=== PATIENT | female | born 1955 | race Caucasian/White ===

== ENCOUNTER 2016-04-11 12:43 | Emergency (ER) | payer MEDICARE ==
[2016-04-11 13:05] VITALS: BP 182/91; PULSE 76; RESP 18; TEMP 98
--- NOTE | 2016-04-11 13:27 | ED ---
URI HPI - General Chief Complaint: Upper Respiratory Infection Stated Complaint: Sore Throat Time Seen by Provider: 04/11/16 13:07 Source: patient Mode of arrival: ambulatory Limitations: no limitations - History of Present Illness Initial Comments: Patient is a 60-year-old female, patient of Dr. Garzon in the outpatient setting with medical history significant for bronchitis, COPD even though patient is not aware of this diagnosis, nicotine dependence, and hypothyroidism. Patient presents to the hospital with complaints of cough and throat irritation 2 days. Patient reports nasal congestion. Patient states she became concerned when she noticed that her sputum had blood streaks in it. Patient states she normally has a clear sputum, but has now turned to green. Patient reports sweats at night but no documented fevers. Patient states over the last couple of days she's had diarrhea and one episode of vomiting yesterday. Patient currently denies diarrhea or vomiting. Patient denies sick contacts. Patient denies shortness of breath, chest pain, or abdominal pain. Patient denies leg swelling. No treatment prior to arrival. - Related Data Home Medications Medication Instructions Recorded Confirmed Dextroamphetamine/Amphetamine 10 mg PO BID 08/12/13 04/14/15 [Adderall] Diazepam [Valium] 10 mg PO TID PRN 08/12/13 04/14/15 Hydrocodone/Acetaminophen [[place] 1 each PO Q4H PRN 08/12/13 04/14/15 10-325] Levothyroxine Sodium [Synthroid] 75 mcg PO DAILY 08/12/13 04/14/15 Previous Rx's Medication Instructions Recorded Albuterol Inhaler [Ventolin Hfa 1 - 2 puff INHALATION Q6HR PRN #1 04/01/14 Inhaler] inhaler Cephalexin [Keflex] 500 mg PO Q6HR #40 cap 04/14/15 Triamcinolone 0.1% Cream [Kenalog] 1 applicatio TOPICAL BID #30 gram 04/14/15 Allergies Allergy/AdvReac Type Severity Reaction Status Date / Time cephalexin [From Keflex] Allergy Rash/Hives Verified 04/11/16 13:05 Review of Systems ROS Statement: Those systems with pertinent positive or pertinent negative responses have been documented in the HPI. ROS Other: All systems not noted in ROS Statement are negative. 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 History of Any Multi-Drug Resistant Organisms: None Reported Past Surgical History: Bladder Surgery, Section Additional Past Surgical History / Comment(s): bunionectomy, x3, cancerous lesion removed from labia 2010. Past Anesthesia/Blood Transfusion Reactions: No Reported Reaction Past Psychological History: Depression Additional Psychological History / Comment(s): pt. reports she lost her a year ago and currently sees a counselor who she talks to Smoking Status: Current every day smoker Past Alcohol Use History: None Reported Past Drug Use History: None Reported - Past Family History Mother Additional Family Medical History / Comment(s): pt. reports mother had an aortic valve replacement General Exam - General Exam Comments Initial Comments: Vital signs noted as above. RN notes reviewed. GENERAL: Pt awake and alert, well-appearing, well-nourished, and in no acute distress. HEAD: Atraumatic, normocephalic. EYES: Pupils equal, round, and reactive to light, extraocular movements intact, sclera anicteric, conjunctiva are normal. ENT: Oropharynx with mild erythema, no exudates on tonsils. Moist mucous membranes. NECK:Normal range of motion, supple without lymphadenopathy or JVD. LUNGS: Breath sounds clear to auscultation bilaterally. No wheezes, rales, or rhonchi. Loose, harsh productive cough. HEART: Heart S1, S2, no S3 or S4. Regular rate and rhythm. No murmurs, rubs or gallops. ABDOMEN: Soft, obese, nontender, nondistended, normoactive bowel sounds. No guarding, no rebound. No masses or organomegaly appreciated. EXTREMITIES: 2+ peripheral pulses. No edema. No calf tenderness. NEUROLOGICAL: Pt oriented x 3. Cranial nerves II through XII grossly intact. Strength and sensation grossly intact. PSYCH: Normal mood, normal affect. SKIN: Warm, dry, intact. Normal turgor. No rashes or lesions. Limitations: no limitations Course Vital Signs 04/11/16 13:00 Temperature 98.0 F Pulse Rate 76 Respiratory 18 Rate Blood Pressure 182/91 O2 Sat by Pulse 98 Oximetry Medical Decision Making - Medical Decision Making Upper respiratory infection suspect viral with a history of nasal congestion, rhinitis, sore throat, and cough. Chest x-ray negative. Patient denies shortness of breath and no wheezing on physical exam. Patient educated on conservative measures. Reviewed with patient possibly need for antibiotics if symptoms progress, patient declines antibiotics at this time. Patient instructed to follow-up with primary care physician early next week. Return parameters and discharge instructions reviewed. - Radiology Data Radiology results: report reviewed Chest x-ray: Lungs are clear, no pneumothorax or pleural effusion no focal pneumonia. Disposition Clinical Impression: Upper respiratory infection Disposition: HOME SELF-CARE Condition: Good Instructions: Upper Respiratory Infection (ED) Additional Instructions: Increase fluid intake, rest, Tylenol or Motrin for mild pain, if needed over-the -counter cough suppressant or mucus expectorants. Follow-up with Dr. Garzon early next week as directed. Please return to the emergency department if symptoms do not improve or get worse. Referrals: Ailyn Garzon MD [Primary Care Provider] - 1-2 days Time of Disposition: 13:56
--- NOTE | 2016-04-11 13:39 | XR ---
EXAMINATION TYPE: XR chest 2V DATE OF EXAM: 04/11/2016 1:32 PM COMPARISON: 03/29/2014 HISTORY: Cough FINDINGS: The lungs are clear and there is no pneumothorax, pleural effusion, or focal pneumonia. Surgical cl ips in the abdomen. IMPRESSION: 1. No acute process.
== END 2016-04-11 14:09 | disposition home or self-care (01) ==
LOC: EC 12:43
DX: J06.9 Acute upper respiratory infection, unspecified (principal); E07.9 Disorder of thyroid, unspecified; E66.9 Obesity, unspecified; F17.200 Nicotine dependence, unspecified, uncomplicated; Z88.1 Allergy status to other antibiotic agents; Z68.42 Body mass index [BMI] 45.0-49.9, adult; Z79.899 Other long term (current) drug therapy
CPT/HCPCS: 71020; 99283

== ENCOUNTER 2017-01-02 15:46 | Emergency (ER) | payer MEDICARE ==
[2017-01-02 15:53] VITALS: PULSE 89
--- NOTE | 2017-01-02 16:50 | XR ---
EXAMINATION TYPE: XR knee complete RT DATE OF EXAM: 01/02/2017 CLINICAL HISTORY: Right knee pain and swelling TECHNIQUE: Three views of the right knee are obtained. COMPARISON: None. FINDINGS: There is no acute fracture/dislocation evident in right knee. The overlying soft tissue ap pears unremarkable. Mild to moderate tricompartmental osteoarthrosis is seen as marginal osteophytes, subchondral sclerosis, and medial compartment joint space narrowing. Chondrocalcinosis is seen of th e lateral compartment. No suprapatellar joint effusion. IMPRESSION: 1. There is no acute fracture or dislocation in the right knee. 2. Mild to moderate tricompartmental osteoarthrosis. 3. Chondrocalcinosis of the lateral compartment which may relate to underlying CPPD.
--- NOTE | 2017-01-02 17:00 | ED ---
Lower Extremity Injury HPI - General Chief Complaint: Extremity Injury, Lower Stated Complaint: R knee swelling Time Seen by Provider: 01/02/17 16:12 Source: patient, RN notes reviewed, old records reviewed Mode of arrival: ambulatory Limitations: no limitations - History of Present Illness Initial Comments: This is a 61-year-old feel presenting to the emergency Department chief complaint of right knee pain. Patient was on she was walking warm I felt a pop in her knee. She reports that it become increasingly swollen. She states it's worse after she's been walking on it at night. Patient states that she is around any previous injuries to this knee. She states she has a clicking sensation when walking. Patient denies any numbness or tingling down the leg. She reports the pain will occasionally shoot up the leg. - Related Data Home Medications Medication Instructions Recorded Confirmed Diazepam [Valium] 10 mg PO TID PRN 08/12/13 01/02/17 Hydrocodone/Acetaminophen [[place] 1 tab PO QID 08/12/13 01/02/17 10-325] Levothyroxine Sodium [Synthroid] 75 mcg PO DAILY 08/12/13 01/02/17 Latanoprost [Xalatan 0.005%] 1 drop BOTH EYES HS 01/02/17 01/02/17 Previous Rx's Medication Instructions Recorded Ibuprofen [Motrin] 800 mg PO TID #20 tab 01/02/17 Allergies Allergy/AdvReac Type Severity Reaction Status Date / Time cephalexin [From Keflex] Allergy Rash/Hives Verified 01/02/17 16:15 Review of Systems ROS Statement: Those systems with pertinent positive or pertinent negative responses have been documented in the HPI. ROS Other: All systems not noted in ROS Statement are negative. 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 glaucoma History of Any Multi-Drug Resistant Organisms: None Reported Past Surgical History: Bladder Surgery, Section Additional Past Surgical History / Comment(s): bunionectomy, x3, cancerous lesion removed from labia 2010. Past Anesthesia/Blood Transfusion Reactions: No Reported Reaction Past Psychological History: Depression Smoking Status: Current every day smoker Past Alcohol Use History: None Reported Past Drug Use History: None Reported - Past Family History Mother Additional Family Medical History / Comment(s): pt. reports mother had an aortic valve replacement General Exam - General Exam Comments Initial Comments: this is a 61-year-old female. No acute distress. Limitations: no limitations General appearance: alert, in no apparent distress Head exam: Present: atraumatic, normocephalic, normal inspection Eye exam: Present: normal appearance, PERRL, EOMI. Absent: scleral icterus, conjunctival injection, periorbital swelling ENT exam: Present: normal exam, mucous membranes moist Neck exam: Present: normal inspection. Absent: tenderness, meningismus, lymphadenopathy Respiratory exam: Present: normal lung sounds bilaterally. Absent: respiratory distress, wheezes, rales, rhonchi, stridor Cardiovascular Exam: Present: regular rate, normal rhythm, normal heart sounds. Absent: systolic murmur, diastolic murmur, rubs, gallop, clicks GI/Abdominal exam: Present: soft, normal bowel sounds. Absent: distended, tenderness, guarding, rebound, rigid Extremities exam: Present: normal inspection, full ROM, normal capillary refill , other (Right knee swelling and pain with flexion. Crepitus with [place] test. Patient has normal sensation and has normal dorsalis pedis pulse). Absent : tenderness, pedal edema, joint swelling, calf tenderness Back exam: Present: normal inspection Neurological exam: Present: alert, oriented X3, CN II-XII intact Psychiatric exam: Present: normal affect, normal mood Course Vital Signs 01/02/17 01/02/17 15:48 17:18 Temperature 97.5 F L 98 F Pulse Rate 89 89 Respiratory 16 18 Rate Blood Pressure 142/65 142/78 O2 Sat by Pulse 97 98 Oximetry Procedures - Orthopedic Splinting/Casting Injury #1 Side: right Lower Extremity Injury Location: knee Lower Extremity Immobilizer: knee immobilizer Other Orthopedic Equipment: crutches Medical Decision Making - Medical Decision Making his is a 61-year-old feel presenting to the emergency Department chief complaint of right knee pain. Patient was on she was walking warm I felt a pop in her knee. She reports that it become increasingly swollen. She states it's worse after she's been walking on it at night. Patient does have swelling and crepitus within knee with range of motion. Patient is tender over MCL and LCL. Patient xray shows no fracture, evidence of arthritis and calcified LCL ligament. Patient placed in knee immobilize, written Rx for crutches. Discussed follow up with orthopedic. REturn parameters discuussed. - Radiology Data Radiology results: report reviewed No fracture or dislocation. Mild to moderate tricomplartmental osteoarthrosis. Chondrocalcinosis of the lateral compartment which may relate to underlying CPPD. Disposition Clinical Impression: Right knee sprain, Injury of meniscus of right knee Disposition: HOME SELF-CARE Condition: Good Instructions: Knee Sprain (ED), Meniscus Tear (ED) Additional Instructions: patient advised to use a knee immobilizer. Follow-up with orthopedic physician. Motrin or Tylenol for pain. Return to emergency department if any alarming signs or symptoms occur. Prescriptions: Ibuprofen [Motrin] 800 mg PO TID #20 tab Referrals: Ailyn Garzon MD [Primary Care Provider] - 1-2 days Lee Nugent PAC [[facility]IC[facility] [employer]] - 1-2 days Time of Disposition: 17:00
[2017-01-02 17:19] VITALS: BP 142/78; RESP 18; TEMP 98
== END 2017-01-02 17:19 | disposition home or self-care (01) ==
LOC: EC 15:46
DX: S83.8X1A Sprain of other specified parts of right knee, initial encounter (principal); E07.9 Disorder of thyroid, unspecified; F17.200 Nicotine dependence, unspecified, uncomplicated; Z85.44 Personal history of malignant neoplasm of other female genital organs; Z88.1 Allergy status to other antibiotic agents; Z79.891 Long term (current) use of opiate analgesic; Z79.899 Other long term (current) drug therapy; X50.1XXA Overexertion from prolonged static or awkward postures, initial encounter
CPT/HCPCS: 99284

== ENCOUNTER → 2017-04-22 | Outpatient (CLI) | payer MEDICARE ==
--- NOTE | 2017-04-25 11:32 | MM ---
Reason for exam: screening (asymptomatic). Last mammogram was performed 1 year and 4 months ago. History: Patient is postmenopausal and has history of other cancer at age 56. Physical Findings: A clinical breast exam by your physician is recommended on an annual basis and results should be correlated with mammographic findings. MG 3D Screening Mammo W/Cad Bilateral CC and MLO view(s) were taken. Prior study comparison: December 24, 2015, bilateral MG 3d screening mammo w/cad. September 06, 2014, bilateral MG screening mammo w CAD. There are scattered fibroglandular densities. There is no discrete abnormality. No significant changes when compared with prior studies. ASSESSMENT: Negative, BI-RAD 1 RECOMMENDATION: Routine screening mammogram of both breasts in 1 year.
== END | disposition home or self-care (01) ==
LOC: LABWHC1 11:15
PROVIDERS: ATTEND Internal Medicine
DX: Z12.31 Encounter for screening mammogram for malignant neoplasm of breast (principal)
CPT/HCPCS: 77063; 77067

== ENCOUNTER 2017-06-06 01:30 | Emergency (ER) | payer MEDICARE ==
[2017-06-06 01:43] VITALS: RESP 16; TEMP 97.4
[2017-06-06] MEDS ORDERED: ORPHENADRINE 30 MG/ML 2 ML VIAL IM STA (02:17)
[2017-06-06] MEDS ORDERED: KETOROLAC 30 MG/ML 1 ML VIAL IM STA (02:17)
--- NOTE | 2017-06-06 02:36 | ED ---
Neck Injury/Pain HPI - General Chief Complaint: Neck Pain/Injury Stated Complaint: neck/head pain Time Seen by Provider: 06/06/17 01:54 Source: RN notes reviewed Mode of arrival: ambulatory Limitations: no limitations - History of Present Illness Initial Comments: This is a 61-year-old female who presents to the emergency department with chief complaint of neck pain. Patient states that she woke up yesterday morning with right-sided neck pain. She states she took aspirin but that it did not help much. She states that at approximately 7:30 this evening she applied ice and heat but this did not help either. At 9:30 she went to bed and was awoken at 12:45 with a pounding headache and continuing right-sided neck pain. Patient denies any specific injuries or trauma. She states that pain is elicited with rotation of her head. She states that she has a pounding right- sided occipital headache. Denies fever, chills, chest pain, shortness of breath , abdominal pain, nausea or vomiting, constipation or diarrhea, dysuria or hematuria, numbness or tingling, headache or vision changes. - Related Data Home Medications Medication Instructions Recorded Confirmed Diazepam [Valium] 10 mg PO TID PRN 08/12/13 01/02/17 Hydrocodone/Acetaminophen [[place] 1 tab PO QID 08/12/13 01/02/17 10-325] Levothyroxine Sodium [Synthroid] 75 mcg PO DAILY 08/12/13 01/02/17 Latanoprost [Xalatan 0.005%] 1 drop BOTH EYES HS 01/02/17 01/02/17 Previous Rx's Medication Instructions Recorded Ibuprofen [Motrin] 800 mg PO TID #20 tab 01/02/17 Cyclobenzaprine [Flexeril] 10 mg PO TID #15 tab 06/06/17 Ibuprofen 600 mg PO Q6HR #20 tablet 06/06/17 Allergies Allergy/AdvReac Type Severity Reaction Status Date / Time cephalexin [From Keflex] Allergy Rash/Hives Verified 06/06/17 01:42 Review of Systems ROS Statement: Those systems with pertinent positive or pertinent negative responses have been documented in the HPI. ROS Other: All systems not noted in ROS Statement are negative. 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 glaucoma History of Any Multi-Drug Resistant Organisms: None Reported Past Surgical History: Bladder Surgery, Section Additional Past Surgical History / Comment(s): bunionectomy, x3, cancerous lesion removed from labia 2010. Past Anesthesia/Blood Transfusion Reactions: No Reported Reaction Past Psychological History: Depression Smoking Status: Current every day smoker Past Alcohol Use History: None Reported Past Drug Use History: None Reported - Past Family History Mother Additional Family Medical History / Comment(s): pt. reports mother had an aortic valve replacement General Exam - General Exam Comments Initial Comments: General: Awake and alert, well-developed; in no apparent distress. Patient sitting stiffly on ED stretcher. HEENT: Head atraumatic, normocephalic. Pupils are equal, round and reactive to light. Extraocular movements intact. Oropharynx moist without erythema or exudate. Neck: Supple. Limited range of motion due to pain. Pain is elicited with rotation to the right and extension of the neck. There is tenderness on palpation of trapezius and right sided neck musculature. Cardiovascular: Regular rate and rhythm. No murmurs, rubs or gallops. Chest symmetrical. Respiratory: Lungs clear to auscultation bilaterally. No wheezes, rales or rhonchi. Normal respiratory effort with no use of accessory muscles. Musculoskeletal: Normal ROM, no tenderness bilateral upper and lower extremities. Ambulating normally. Skin: [place], warm and dry without rashes or lesions. Neurological: Alert and oriented x3. CN II-XII grossly intact. Speech is fluent and answers are appropriate. No focal neuro deficits. Psychiatric: Normal mood and affect. No overt signs of depression or anxiety noted. Limitations: no limitations Course Vital Signs 06/06/17 01:38 Temperature 97.4 F L Pulse Rate 74 Respiratory 16 Rate Blood Pressure 177/77 O2 Sat by Pulse 98 Oximetry Medical Decision Making - Medical Decision Making This is a 61-year-old female who presents to the emergency department with chief complaint of neck pain. Patient awoke yesterday from sleeping with right- sided neck pain. She states that she has difficulty moving her head due to the pain. There is tenderness on palpation of musculature at right side of neck. Patient also complains of a pounding occipital headache. Denies any other symptoms. Vital signs are stable and she is in no acute distress. Patient was given Toradol and Norflex while in the emergency department. Physical exam is indicative of a cervical strain. She will be discharged home with prescriptions for ibuprofen and Flexeril. She is in agreement and voices understanding. All questions were answered. Disposition Clinical Impression: Strain of neck muscle Disposition: HOME SELF-CARE Condition: Good Instructions: Cervical Strain (ED) Additional Instructions: Please take medications as prescribed. May apply heat to the area. Please follow up with primary care provider within 1-2 days. Return to emergency department if symptoms should worsen or any concerns arise. Prescriptions: Cyclobenzaprine [Flexeril] 10 mg PO TID #15 tab Ibuprofen 600 mg PO Q6HR #20 tablet Referrals: Ailyn Garzon MD [Primary Care Provider] - 1-2 days Time of Disposition: 02:35
[2017-06-06 03:08] VITALS: BP 166/74; PULSE 67
== END 2017-06-06 03:08 | disposition home or self-care (01) ==
LOC: EC 01:30
DX: S16.1XXA Strain of muscle, fascia and tendon at neck level, initial encounter (principal); R51 Headache; E07.9 Disorder of thyroid, unspecified; H40.9 Unspecified glaucoma; F17.200 Nicotine dependence, unspecified, uncomplicated; Z79.891 Long term (current) use of opiate analgesic; Z79.899 Other long term (current) drug therapy; Z88.1 Allergy status to other antibiotic agents; Z85.44 Personal history of malignant neoplasm of other female genital organs; Z98.890 Other specified postprocedural states; X58.XXXA Exposure to other specified factors, initial encounter
CPT/HCPCS: 99283; 96372 ×2; J2360; J1885

== ENCOUNTER → 2017-06-15 | Outpatient (CLI) | payer MEDICARE ==
--- NOTE | 2017-06-15 16:05 | XR ---
EXAMINATION TYPE: XR chest 2V DATE OF EXAM: 06/15/2017 COMPARISON: 04/11/2016 TECHNIQUE: PA and lateral views submitted. HISTORY: Cough FINDINGS: Heart size is stable. There is subsegmental changes at the right lung base. No pleural effusion or pn eumothorax. No overt failure. IMPRESSION: 1. Exam limited by technique. Subsegmental changes at the right lung base felt to be more typical of atelectasis than early pneumonia but correlate clinically.
== END | disposition home or self-care (01) ==
LOC: RADXRMAIN 15:26
PROVIDERS: ATTEND Internal Medicine
DX: R05 Cough (principal)
CPT/HCPCS: 71046

== ENCOUNTER → 2017-06-28 | Outpatient (CLI) | payer MEDICARE ==
--- NOTE | 2017-06-28 08:17 | MR ---
MRI CERVICAL SPINE: CLINICAL HISTORY: Cervicalgia per order. Headache with neck pain for one month per patient. TECHNIQUE: Multiplanar, multisequence imaging of the cervical spine is performed without and with IV contrast, 14 cc of gadolinium was given intravenously. COMPARISON: None. FINDINGS: Coronal images show slight dextroconvex scoliotic curvature centered in the upper thoracic spine. Sagittal images of the cervical spine show the craniocervical junction to appear within normal limits. The cervical and upper thoracic spinal cord is normal in course, caliber, and signal. Vert ebral alignment is anatomic. The vertebral body and intravertebral disk heights are normal. The larg e posterior disc herniations are seen on sagittal images. The bone marrow signal intensity is within normal limits. No significant spurring is seen. No suspicious postcontrast enhancement is seen. Axial images show the C2-C3 level to appear within normal limits. Axial images at C3-C4 level show broad-based posterior disc protrusion mildly effacing anterior theca l sac, bilateral neural foramina are patent. Axial images at C4-C5 level show broad-based left paracentral/foraminal spur disc complex effacing an terolateral thecal sac and causing mild left-sided neural foraminal narrowing. Right-sided neural for amen is patent. Axial images at C5-C6 , C6-C7, and C7-T1 levels are all felt within normal limits. IMPRESSION: Slight dextroconvex scoliotic curvature with mild degenerative changes C3-C4 and C4-C5 le jet noted as detailed above.
== END | disposition home or self-care (01) ==
LOC: RADMRIMAIN 06:39
PROVIDERS: ATTEND Internal Medicine
DX: M99.71 Connective tissue and disc stenosis of intervertebral foramina of cervical region (principal); M50.21 Other cervical disc displacement, high cervical region; M47.812 Spondylosis without myelopathy or radiculopathy, cervical region; M41.84 Other forms of scoliosis, thoracic region
CPT/HCPCS: 72156; A9581

== ENCOUNTER 2018-01-21 11:38 | Emergency (ER) | payer MEDICARE ==
[2018-01-21 11:48] VITALS: TEMP 97.5
[2018-01-21] MEDS ORDERED: SODIUM CHLORIDE 0.9% 1,000 ML IV STA (12:19)
[2018-01-21] MEDS ORDERED: ONDANSETRON 4 MG/2 ML VIAL IVP STA (12:19)
--- NOTE | 2018-01-21 12:29 | ED ---
Dizziness HPI - General Chief Complaint: Dizziness Stated Complaint: Dizzy, Nauseated, Headache Time Seen by Provider: 01/21/18 12:02 Source: patient, RN notes reviewed, old records reviewed Mode of arrival: ambulatory Limitations: no limitations - History of Present Illness Initial Comments: This is a 62-year-old female the ER for evaluation, patient complains of dizziness, room spinning, headache. Denies history of trauma. She states she does have history of vertigo slowly the symptoms maybe worse. She has no diffuse walking, no history of ataxia. No recent travel history no sick contacts no recent change in medications MD Complaint: dizziness, other (Room spinning headache) Timing: gradual onset Description: "room spinning", off-balance History of Same: Yes History of Trauma: No Severity: mild Improves With: remaining still Worsens With: nothing Associated Symptoms: denies other symptoms - Related Data Home Medications Medication Instructions Recorded Confirmed Diazepam [Valium] 10 mg PO TID PRN 08/12/13 01/02/17 Hydrocodone/Acetaminophen [[place] 1 tab PO QID 08/12/13 01/02/17 10-325] Levothyroxine Sodium [Synthroid] 75 mcg PO DAILY 08/12/13 01/02/17 Latanoprost [Xalatan 0.005%] 1 drop BOTH EYES HS 01/02/17 01/02/17 Previous Rx's Medication Instructions Recorded Ibuprofen [Motrin] 800 mg PO TID #20 tab 01/02/17 Cyclobenzaprine [Flexeril] 10 mg PO TID #15 tab 06/06/17 Ibuprofen 600 mg PO Q6HR #20 tablet 06/06/17 Allergies Allergy/AdvReac Type Severity Reaction Status Date / Time cephalexin [From Keflex] Allergy Rash/Hives Verified 01/21/18 11:47 Review of Systems ROS Statement: Those systems with pertinent positive or pertinent negative responses have been documented in the HPI. ROS Other: All systems not noted in ROS Statement are negative. 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 glaucoma History of Any Multi-Drug Resistant Organisms: None Reported Past Surgical History: Bladder Surgery, Section Additional Past Surgical History / Comment(s): bunionectomy, x3, cancerous lesion removed from labia 2010. Past Anesthesia/Blood Transfusion Reactions: No Reported Reaction Past Psychological History: Depression Smoking Status: Current every day smoker Past Alcohol Use History: None Reported Past Drug Use History: None Reported - Past Family History Mother Additional Family Medical History / Comment(s): pt. reports mother had an aortic valve replacement General Exam Limitations: no limitations General appearance: alert, in no apparent distress Head exam: Present: atraumatic, normocephalic, normal inspection Eye exam: Present: normal appearance, PERRL, EOMI. Absent: scleral icterus, conjunctival injection, periorbital swelling ENT exam: Present: normal exam, mucous membranes moist Neck exam: Present: normal inspection. Absent: tenderness, meningismus, lymphadenopathy Respiratory exam: Present: normal lung sounds bilaterally. Absent: respiratory distress, wheezes, rales, rhonchi, stridor Cardiovascular Exam: Present: regular rate, normal rhythm, normal heart sounds. Absent: systolic murmur, diastolic murmur, rubs, gallop, clicks GI/Abdominal exam: Present: soft, normal bowel sounds. Absent: distended, tenderness, guarding, rebound, rigid Extremities exam: Present: normal inspection, full ROM, normal capillary refill. Absent: tenderness, pedal edema, joint swelling, calf tenderness Back exam: Present: normal inspection Neurological exam: Present: alert, oriented X3, CN II-XII intact Psychiatric exam: Present: normal affect, normal mood Skin exam: Present: warm, dry, intact, normal color. Absent: rash Course Vital Signs 01/21/18 01/21/18 01/21/18 11:46 12:57 13:00 Temperature 97.5 F L Pulse Rate 77 68 68 Respiratory 18 16 21 Rate Blood Pressure 183/86 182/80 O2 Sat by Pulse 94 L 97 Oximetry - Reevaluation(s) Reevaluation #1: 01/21/18 12:29 Medical history is thoroughly reviewed EKG Findings - EKG Comments: EKG Findings:: EKG shows sinus rhythm rate of 74, [place] 144, QRS 74, QTC 426 Medical Decision Making - Medical Decision Making 62 female the ER for evaluation, patient resents today for evaluation regards to dizziness and headache. CT brain is negative. Headache is resolved, patient can be discharged home - Lab Data Result diagrams: 01/21/18 12:15 01/21/18 12:15 Lab Results 01/21/18 01/21/18 01/21/18 Range/Units 12:15 12:15 12:15 WBC 10.3 (3.8-10.6) k/uL RBC 4.63 (3.80-5.40) m/uL Hgb 14.3 (11.4-16.0) gm/dL Hct 43.7 (34.0-46.0) % MCV 94.4 (80.0-100.0) fL MCH 31.0 (25.0-35.0) pg MCHC 32.8 (31.0-37.0) g/dL RDW 13.0 (11.5-15.5) % Plt Count 185 (150-450) k/uL Neutrophils % 69 % Lymphocytes % 21 % Monocytes % 5 % Eosinophils % 4 % Basophils % 0 % Neutrophils # 7.1 (1.3-7.7) k/uL Lymphocytes # 2.2 (1.0-4.8) k/uL Monocytes # 0.5 (0-1.0) k/uL Eosinophils # 0.4 (0-0.7) k/uL Basophils # 0.0 (0-0.2) k/uL PT (9.0-12.0) sec INR (<1.2) APTT (22.0-30.0) sec Sodium 140 (137-145) mmol/L Potassium 4.3 (3.5-5.1) mmol/L Chloride 106 (98-107) mmol/L Carbon Dioxide 26 (22-30) mmol/L Anion Gap 8 mmol/L BUN 13 (7-17) mg/dL Creatinine 0.67 (0.52-1.04) mg/dL Est GFR (CKD-EPI)AfAm >90 (>60 ml/min/1.73 sqM) Est GFR (CKD-EPI)NonAf >90 (>60 ml/min/1.73 sqM) Glucose 124 H (74-99) mg/dL Calcium 9.3 (8.4-10.2) mg/dL Phosphorus 4.0 (2.5-4.5) mg/dL Magnesium 1.9 (1.6-2.3) mg/dL Total Bilirubin 0.4 (0.2-1.3) mg/dL AST 14 (14-36) U/L ALT 15 (9-52) U/L Alkaline Phosphatase 117 (38-126) U/L Total Creatine Kinase 35 (30-135) U/L CK-MB (CK-2) 0.3 (0.0-2.4) ng/mL CK-MB (CK-2) Rel Index 0.9 Troponin I <0.012 (0.000-0.034) ng/mL Total Protein 7.0 (6.3-8.2) g/dL Albumin 3.8 (3.5-5.0) g/dL 01/21/18 Range/Units 12:15 WBC (3.8-10.6) k/uL RBC (3.80-5.40) m/uL Hgb (11.4-16.0) gm/dL Hct (34.0-46.0) % MCV (80.0-100.0) fL MCH (25.0-35.0) pg MCHC (31.0-37.0) g/dL RDW (11.5-15.5) % Plt Count (150-450) k/uL Neutrophils % % Lymphocytes % % Monocytes % % Eosinophils % % Basophils % % Neutrophils # (1.3-7.7) k/uL Lymphocytes # (1.0-4.8) k/uL Monocytes # (0-1.0) k/uL Eosinophils # (0-0.7) k/uL Basophils # (0-0.2) k/uL PT 10.2 (9.0-12.0) sec INR 1.0 (<1.2) APTT 24.1 (22.0-30.0) sec Sodium (137-145) mmol/L Potassium (3.5-5.1) mmol/L Chloride (98-107) mmol/L Carbon Dioxide (22-30) mmol/L Anion Gap mmol/L BUN (7-17) mg/dL Creatinine (0.52-1.04) mg/dL Est GFR (CKD-EPI)AfAm (>60 ml/min/1.73 sqM) Est GFR (CKD-EPI)NonAf (>60 ml/min/1.73 sqM) Glucose (74-99) mg/dL Calcium (8.4-10.2) mg/dL Phosphorus (2.5-4.5) mg/dL Magnesium (1.6-2.3) mg/dL Total Bilirubin (0.2-1.3) mg/dL AST (14-36) U/L ALT (9-52) U/L Alkaline Phosphatase (38-126) U/L Total Creatine Kinase (30-135) U/L CK-MB (CK-2) (0.0-2.4) ng/mL CK-MB (CK-2) Rel Index Troponin I (0.000-0.034) ng/mL Total Protein (6.3-8.2) g/dL Albumin (3.5-5.0) g/dL - Radiology Data Radiology results: report reviewed (CT brain negative for acute disease), image reviewed Disposition Clinical Impression: Dizziness Disposition: HOME SELF-CARE Condition: Good Instructions: Dizziness (ED) Is patient prescribed a controlled substance at d/c from ED?: No Referrals: Ailyn Garzon MD [Primary Care Provider] - 1-2 days
[2018-01-21 12:35] LABS: Basophils % (A) 0 %; Eosinophils # (A) 0.4 k/uL (0-0.7); Eosinophils % (A) 4 %; HCT 43.7 % (34.0-46.0); HGB 14.3 gm/dL (11.4-16.0); Lymphocytes # (A) 2.2 k/uL (1.0-4.8); Lymphocytes % (A) 21 %; MCHC 32.8 g/dL (31.0-37.0); MCV 94.4 fL (80.0-100.0); Monocytes # (A) 0.5 k/uL (0-1.0); Monocytes % (A) 5 %; Neutrophils # (A) 7.1 k/uL (1.3-7.7); Neutrophils % (A) 69 %; Platelet Count 185 k/uL (150-450); RBC 4.63 m/uL (3.80-5.40); WBC 10.3 k/uL (3.8-10.6)
--- NOTE | 2018-01-21 12:43 | CT ---
EXAMINATION TYPE: CT brain wo con DATE OF EXAM: 01/21/2018 COMPARISON: NONE HISTORY: Dizzy CT DLP: 975.5 mGycm Automated exposure control for dose reduction was used. FINDINGS: Central structures are midline. There is no evidence of hydrocephalus. No acute focal lesion, mass ef fect or midline shift is seen. I do not see evidence of intracranial blood. Visualized portions of the paranasal sinuses and mastoids are clear. The bony calvarium is intact. IMPRESSION: NO ACUTE INTRACRANIAL ABNORMALITY.
[2018-01-21 12:49] LABS: ALT 15 U/L (9-52); AST 14 U/L (14-36); Albumin 3.8 g/dL (3.5-5.0); Alkaline Phosphatase 117 U/L (38-126); Anion Gap 8 mmol/L; Blood Urea Nitrogen 13 mg/dL (7-17); Calcium 9.3 mg/dL (8.4-10.2); Carbon Dioxide 26 mmol/L (22-30); Chloride 106 mmol/L (98-107); Glucose 124 mg/dL (74-99); Magnesium 1.9 mg/dL (1.6-2.3); Partial Thromboplastin Time 24.1 sec (22.0-30.0); Potassium 4.3 mmol/L (3.5-5.1); Prothrombin Time 10.2 sec (9.0-12.0); Sodium 140 mmol/L (137-145); Total Bilirubin 0.4 mg/dL (0.2-1.3)
[2018-01-21 13:02] VITALS: BP 182/80; PULSE 68; RESP 21
[2018-01-21 13:06] LABS: Creatine Kinase 35 U/L (30-135)
[2018-01-21 13:19] LABS: Creatine Kinase MB 0.3 ng/mL (0.0-2.4); Troponin I <0.012 ng/mL (0.000-0.034)
[2018-01-21] MEDS ORDERED: KETOROLAC 30 MG/ML 1 ML VIAL IVP STA (14:07)
[2018-01-21] MEDS ORDERED: MORPHINE SULFATE 4 MG/ML SYRINGE IVP STA (14:07)
== END 2018-01-21 14:31 | disposition home or self-care (01) ==
LOC: EC 11:38
DX: R42 Dizziness and giddiness (principal); R51 Headache; E07.9 Disorder of thyroid, unspecified; H40.9 Unspecified glaucoma; F17.200 Nicotine dependence, unspecified, uncomplicated; Z88.1 Allergy status to other antibiotic agents; Z79.891 Long term (current) use of opiate analgesic; Z79.899 Other long term (current) drug therapy; Z85.44 Personal history of malignant neoplasm of other female genital organs; Z98.890 Other specified postprocedural states
CPT/HCPCS: 36415; 93005; 80053; 82550; 82553; 83735; 84100; 84484; 85025; 85610; 85730; 70450; 99285; 96374; 96375 ×2; 96361; J2270; J2405; J1885

== ENCOUNTER → 2018-04-06 | Outpatient (CLI) | payer MEDICARE ==
--- NOTE | 2018-04-06 09:20 | XR ---
EXAMINATION TYPE: XR knee complete LT DATE OF EXAM: 04/06/2018 CLINICAL HISTORY: pain TECHNIQUE: Three views of the left knee are obtained. COMPARISON: None. FINDINGS: There is no acute fracture/dislocation. Moderate degenerative narrowing medial tibial femo ral joint space. Intercondylar bones were formation. Spurring about the margins of the femoral condyl es and tibial plateaus. Patellofemoral joint space narrowing. The overlying soft tissue appears unrem arkable. IMPRESSION: There is no acute fracture or dislocation ICD 10 NO FRACTURE, INITIAL EVALUATION
== END | disposition home or self-care (01) ==
LOC: RADXRMAIN 08:26
PROVIDERS: ATTEND Internal Medicine
DX: M25.562 Pain in left knee (principal)

== ENCOUNTER 2018-04-17 13:39 | Emergency (ER) | payer MEDICARE ==
[2018-04-17 13:50] VITALS: TEMP 98.2
[2018-04-17] MEDS ORDERED: SODIUM CHLORIDE 0.9% 500 ML 500 ML IV STA (14:19)
--- NOTE | 2018-04-17 14:30 | ED ---
General Adult HPI - General Chief complaint: Abdominal Pain Stated complaint: Back & abd pain Time Seen by Provider: 04/17/18 14:11 Source: patient, RN notes reviewed Mode of arrival: ambulatory Limitations: no limitations - History of Present Illness Initial comments: 62-year-old female with a past medical history of angina, osteoarthritis, thyroid disorder presents to the emergency department for multiple complaints. Patient states she has had mid back pain for the past day. She states it is a sharp pain in the center of her back. She states the pain also radiates into her upper abdomen. Patient states she fell onto concrete floor two weeks ago and thinks the pain in her back could be from this. Patient denies nausea or vomiting. Patient denies chest pain or shortness of breath. Patient denies history of blood clots, [place], kidney stones. Patient has no other complaints at this time including shortness of breath, chest pain, nausea or vomiting, headache, or visual changes. - Related Data Home Medications Medication Instructions Recorded Confirmed Diazepam [Valium] 10 mg PO TID PRN 08/12/13 04/17/18 Hydrocodone/Acetaminophen [[place] 1 tab PO QID 08/12/13 04/17/18 10-325] Latanoprost [Xalatan 0.005%] 1 drop BOTH EYES HS 01/02/17 04/17/18 Levothyroxine Sodium [Synthroid] 100 mcg PO DAILY 04/17/18 04/17/18 Allergies Allergy/AdvReac Type Severity Reaction Status Date / Time cephalexin [From Keflex] Allergy Rash/Hives Verified 04/17/18 14:09 amlodipine [From Norvasc] AdvReac Nausea & Verified 04/17/18 14:09 Vomiting morphine AdvReac Nausea & Verified 04/17/18 14:09 Vomiting Review of Systems ROS Statement: Those systems with pertinent positive or pertinent negative responses have been documented in the HPI. ROS Other: All systems not noted in ROS Statement are negative. 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 glaucoma History of Any Multi-Drug Resistant Organisms: None Reported Past Surgical History: Bladder Surgery, Section Additional Past Surgical History / Comment(s): bunionectomy, x3, cancerous lesion removed from labia 2010. Past Anesthesia/Blood Transfusion Reactions: No Reported Reaction Past Psychological History: Depression Smoking Status: Current every day smoker Past Alcohol Use History: None Reported Past Drug Use History: None Reported - Past Family History Mother Additional Family Medical History / Comment(s): pt. reports mother had an aortic valve replacement General Exam Limitations: no limitations General appearance: alert, in no apparent distress Head exam: Present: atraumatic, normocephalic, normal inspection Eye exam: Present: normal appearance, PERRL, EOMI. Absent: scleral icterus, conjunctival injection, periorbital swelling ENT exam: Present: normal exam, mucous membranes moist Neck exam: Present: normal inspection, full ROM. Absent: tenderness, meningismus, lymphadenopathy Respiratory exam: Present: normal lung sounds bilaterally. Absent: respiratory distress, wheezes, rales, rhonchi, stridor, chest wall tenderness Cardiovascular Exam: Present: regular rate, normal rhythm, normal heart sounds. Absent: systolic murmur, diastolic murmur, rubs, gallop, clicks GI/Abdominal exam: Present: soft, tenderness (tenderness with guarding to the RUQ, LUQ, and epigastric area.), normal bowel sounds. Absent: distended, guarding, rebound, rigid Back exam: Present: tenderness (generalized tenderness to thoracic spine.) Neurological exam: Present: alert, oriented X3, CN II-XII intact Psychiatric exam: Present: normal affect, normal mood Course Vital Signs 04/17/18 04/17/18 04/17/18 13:47 14:20 15:00 Temperature 98.2 F Pulse Rate 83 79 Respiratory 18 18 18 Rate Blood Pressure 174/91 157/79 157/79 O2 Sat by Pulse 98 98 Oximetry 04/17/18 04/17/18 16:00 17:00 Temperature Pulse Rate 76 76 Respiratory 16 16 Rate Blood Pressure 135/70 O2 Sat by Pulse 98 97 Oximetry Medical Decision Making - Medical Decision Making 62-year-old female presents to the emergency department for multiple complaints. Patient states she has having mid back pain for the past day. Patient states his pain is worsened when she takes a deep breath. She denies any chest pain or shortness of breath. Patient does admit she fell 2 weeks ago but denies any other injuries. She is also complaining of upper abdominal pain , denies nausea or vomiting. On exam patient does have generalized tenderness of the lower thoracic spine. She also has tenderness with guarding of the epigastric area. CBC is unremarkable. White blood count 11.9, likely reactive to pain. CMP within normal limits. Amylase and lipase are within normal limits. D-dimer is negative, low suspicion for dissection. CT abdomen and pelvis with contrast was ordered. This showed no signs of acute abdomen. There is a nonobstructing 2 mm right renal calculus. No ompression fracture. no sign of abdominal aortic aneurysm or dissection. Patient was given Toradol and [place] for pain. Patient was reevaluated at this time stating she is feeling much better. Reexamination of the abdomen was performed and patient is much less tender, no right upper quadrant tenderness. At this time patient states she is ready to go home. Discussed following up with primary care in the next day or 2 and returning here if she has any worsening symptoms. - Lab Data Result diagrams: 04/17/18 14:41 04/17/18 14:41 Lab Results 04/17/18 04/17/18 04/17/18 Range/Units 14:41 14:41 14:41 WBC 11.9 H (3.8-10.6) k/uL RBC 4.34 (3.80-5.40) m/uL Hgb 13.4 (11.4-16.0) gm/dL Hct 41.3 (34.0-46.0) % MCV 95.1 (80.0-100.0) fL MCH 30.9 (25.0-35.0) pg MCHC 32.5 (31.0-37.0) g/dL RDW 13.4 (11.5-15.5) % Plt Count 212 (150-450) k/uL Neutrophils % 68 % Lymphocytes % 22 % Monocytes % 4 % Eosinophils % 4 % Basophils % 0 % Neutrophils # 8.1 H (1.3-7.7) k/uL Lymphocytes # 2.7 (1.0-4.8) k/uL Monocytes # 0.5 (0-1.0) k/uL Eosinophils # 0.5 (0-0.7) k/uL Basophils # 0.0 (0-0.2) k/uL PT 10.3 (9.0-12.0) sec INR 1.0 (<1.2) APTT 25.1 (22.0-30.0) sec D-Dimer (<0.60) mg/L FEU Sodium 141 (137-145) mmol/L Potassium 4.3 (3.5-5.1) mmol/L Chloride 105 (98-107) mmol/L Carbon Dioxide 28 (22-30) mmol/L Anion Gap 8 mmol/L BUN 13 (7-17) mg/dL Creatinine 0.93 (0.52-1.04) mg/dL Est GFR (CKD-EPI)AfAm 78 (>60 ml/min/1.73 sqM) Est GFR (CKD-EPI)NonAf 68 (>60 ml/min/1.73 sqM) Glucose 130 H (74-99) mg/dL Calcium 9.3 (8.4-10.2) mg/dL Magnesium 2.1 (1.6-2.3) mg/dL Total Bilirubin 0.4 (0.2-1.3) mg/dL AST 15 (14-36) U/L ALT 22 (9-52) U/L Alkaline Phosphatase 113 (38-126) U/L Troponin I (0.000-0.034) ng/mL Total Protein 7.0 (6.3-8.2) g/dL Albumin 3.8 (3.5-5.0) g/dL Amylase 31 (30-110) U/L Lipase 46 (23-300) U/L Urine Color Urine Appearance (Clear) Urine pH (5.0-8.0) Ur Specific [place] (1.001-1.035) Urine Protein (Negative) Urine Glucose (UA) (Negative) Urine Ketones (Negative) Urine Blood (Negative) Urine Nitrite (Negative) Urine Bilirubin (Negative) Urine Urobilinogen (<2.0) mg/dL Ur Leukocyte Esterase (Negative) 04/17/18 04/17/18 04/17/18 Range/Units 14:41 14:41 17:18 WBC (3.8-10.6) k/uL RBC (3.80-5.40) m/uL Hgb (11.4-16.0) gm/dL Hct (34.0-46.0) % MCV (80.0-100.0) fL MCH (25.0-35.0) pg MCHC (31.0-37.0) g/dL RDW (11.5-15.5) % Plt Count (150-450) k/uL Neutrophils % % Lymphocytes % % Monocytes % % Eosinophils % % Basophils % % Neutrophils # (1.3-7.7) k/uL Lymphocytes # (1.0-4.8) k/uL Monocytes # (0-1.0) k/uL Eosinophils # (0-0.7) k/uL Basophils # (0-0.2) k/uL PT (9.0-12.0) sec INR (<1.2) APTT (22.0-30.0) sec D-Dimer 0.49 (<0.60) mg/L FEU Sodium (137-145) mmol/L Potassium (3.5-5.1) mmol/L Chloride (98-107) mmol/L Carbon Dioxide (22-30) mmol/L Anion Gap mmol/L BUN (7-17) mg/dL Creatinine (0.52-1.04) mg/dL Est GFR (CKD-EPI)AfAm (>60 ml/min/1.73 sqM) Est GFR (CKD-EPI)NonAf (>60 ml/min/1.73 sqM) Glucose (74-99) mg/dL Calcium (8.4-10.2) mg/dL Magnesium (1.6-2.3) mg/dL Total Bilirubin (0.2-1.3) mg/dL AST (14-36) U/L ALT (9-52) U/L Alkaline Phosphatase (38-126) U/L Troponin I <0.012 (0.000-0.034) ng/mL Total Protein (6.3-8.2) g/dL Albumin (3.5-5.0) g/dL Amylase (30-110) U/L Lipase (23-300) U/L Urine Color Yellow Urine Appearance Clear (Clear) Urine pH 6.5 (5.0-8.0) Ur Specific [place] 1.050 H (1.001-1.035) Urine Protein Negative (Negative) Urine Glucose (UA) Negative (Negative) Urine Ketones Negative (Negative) Urine Blood Negative (Negative) Urine Nitrite Negative (Negative) Urine Bilirubin Negative (Negative) Urine Urobilinogen <2.0 (<2.0) mg/dL Ur Leukocyte Esterase Negative (Negative) Disposition Clinical Impression: Abdominal pain Disposition: HOME SELF-CARE Condition: Good Instructions: Abdominal Pain (ED) Additional Instructions: Please follow up with primary care in 1-2 days. Return to the emergency department if you have worsening symptoms. Is patient prescribed a controlled substance at d/c from ED?: No Referrals: Ailyn Garzon MD [Primary Care Provider] - 1-2 days Time of Disposition: 18:00
[2018-04-17 15:11] LABS: Basophils % (A) 0 %; Eosinophils # (A) 0.5 k/uL (0-0.7); Eosinophils % (A) 4 %; HCT 41.3 % (34.0-46.0); HGB 13.4 gm/dL (11.4-16.0); Lymphocytes # (A) 2.7 k/uL (1.0-4.8); Lymphocytes % (A) 22 %; MCH 30.9 pg (25.0-35.0); MCHC 32.5 g/dL (31.0-37.0); MCV 95.1 fL (80.0-100.0); Mean Platelet Volume 7.9; Monocytes # (A) 0.5 k/uL (0-1.0); Monocytes % (A) 4 %; Neutrophils # (A) 8.1 k/uL (1.3-7.7); Neutrophils % (A) 68 %; Platelet Count 212 k/uL (150-450); RBC 4.34 m/uL (3.80-5.40); RDW 13.4 % (11.5-15.5); WBC 11.9 k/uL (3.8-10.6)
[2018-04-17 15:18] LABS: Albumin 3.8 g/dL (3.5-5.0); Calcium 9.3 mg/dL (8.4-10.2); Magnesium 2.1 mg/dL (1.6-2.3); Potassium 4.3 mmol/L (3.5-5.1); Total Bilirubin 0.4 mg/dL (0.2-1.3)
--- NOTE | 2018-04-17 15:21 | XR ---
EXAMINATION TYPE: XR chest 2V DATE OF EXAM: 04/17/2018 COMPARISON: 06/15/2017 HISTORY: Back pain radiating into the stomach and chest TECHNIQUE: Frontal and lateral views of the chest are obtained. FINDINGS: There is no focal air space opacity, pleural effusion, or pneumothorax seen. The cardiac silhouette size is within normal limits. The osseous structures are intact. IMPRESSION: No acute cardiopulmonary process. Resolution of the previously seen bibasilar opacities.
--- NOTE | 2018-04-17 15:24 | XR ---
EXAMINATION TYPE: XR thoracic spine complete DATE OF EXAM: 04/17/2018 CLINICAL HISTORY: Back pain. TECHNIQUE: Frontal, lateral, and swimmer's view of thoracic spine are obtained. COMPARISON: None. FINDINGS: Thoracic spine show satisfactory alignment without evidence of acute fracture or dislocatio n. Vertebral body heights and disc space heights are preserved. There are small anterior osteophytes seen throughout the thoracic spine. Visualized ribs are unremarkable. IMPRESSION: No acute fracture or dislocation is seen in the thoracic spine. Mild multilevel degenera tive change of the thoracic spine.
[2018-04-17 15:26] LABS: Partial Thromboplastin Time 25.1 sec (22.0-30.0); Prothrombin Time 10.3 sec (9.0-12.0)
[2018-04-17] MEDS ORDERED: HYDROcodone/APAP 5-325MG 1 EACH TAB PO STA (16:06)
[2018-04-17] MEDS ORDERED: KETOROLAC 30 MG/ML 1 ML VIAL IVP STA (16:06)
--- NOTE | 2018-04-17 17:07 | CT ---
EXAMINATION TYPE: CT abdomen pelvis w con DATE OF EXAM: 04/17/2018 COMPARISON: None HISTORY: Mid abdominal tenderness and back pain. Evaluate aorta also. CT DLP: 2362.1 mGycm Automated exposure control for dose reduction was used. TECHNIQUE: Helical acquisition of images was performed from the lung bases through the pelvis. CONTRAST: Performed without Oral Contrast and with IV Contrast, patient injected with 100 mL of Isovue 370. FINDINGS: Lung bases are clear. There is no pleural effusion. Heart size is normal. There is no pericardial eff usion. Liver spleen pancreas appear normal. Bile ducts are not dilated. There are clips from cholecys tectomy. There is no adrenal mass. There is some nodularity in the left adrenal gland consistent with hyperpla colleen. Kidneys show satisfactory contrast opacification. There is no hydronephrosis. The ureters are not dil ated. There is no retroperitoneal adenopathy. Abdominal aorta is atheromatous.LUMBAR VERTEBRA HAVE NO RMAL SPACING AND ALIGNMENT. THERE IS NO COMPRESSION FRACTURE. I see no bony destructive process. Bony pelvis is intact. Bladder distends smoothly. There is no inguinal hernia. There is no free fluid in the pelvis. There i s no sign of a thickened appendix. Appendix is not definitely seen. There is subcutaneous edema over the lower lumbar spine. There is hypertrophic facet arthropathy in the lumbar spine at L4-5 with bony spinal stenosis. There is no sign of abdominal aortic aneurysm or dissection. IMPRESSION: L4-5 MODERATELY SEVERE BONY SPINAL STENOSIS. NO SIGN OF ACUTE ABDOMEN AND PELVIS. NONOBSTRUCTING 2 MM RIGHT RENAL CALCULUS. NO SIGN OF ACUTE ABDOMEN AND PELVIS.
[2018-04-17 17:28] LABS: Appearance,Urine Clear (Clear); Bilirubin,Urine Negative (Negative); Blood,Urine Negative (Negative); Color,Urine Yellow; Glucose,Urine (UA) Negative (Negative); Ketones,Urine Negative (Negative); Leukocyte Esterase,Urine Negative (Negative); Nitrite,Urine Negative (Negative); PH, Urine 6.5 (5.0-8.0); Protein,Urine Negative (Negative); Urobilinogen,Urine <2.0 mg/dL (<2.0)
[2018-04-17 18:16] VITALS: BP 151/78; PULSE 70; RESP 18
== END 2018-04-17 18:16 | disposition home or self-care (01) ==
LOC: EC 13:39
DX: R10.10 Upper abdominal pain, unspecified (principal); M54.6 Pain in thoracic spine; N20.0 Calculus of kidney; M19.90 Unspecified osteoarthritis, unspecified site; E07.9 Disorder of thyroid, unspecified; F41.9 Anxiety disorder, unspecified; F17.200 Nicotine dependence, unspecified, uncomplicated; Z85.828 Personal history of other malignant neoplasm of skin; Z98.890 Other specified postprocedural states; Z79.890 Hormone replacement therapy; Z79.891 Long term (current) use of opiate analgesic; Z79.899 Other long term (current) drug therapy; Z88.1 Allergy status to other antibiotic agents; Z88.5 Allergy status to narcotic agent; Z88.8 Allergy status to other drugs, medicaments and biological substances; W18.39XA Other fall on same level, initial encounter
CPT/HCPCS: 36415; 85379; 80053; 82150; 83690; 83735; 84484; 85025; 85610; 85730; 81003; 72072; 71046; 74177; 99284; 96374; 96361 ×2; J1885; Q9967

== ENCOUNTER → 2018-05-03 | Outpatient (CLI) | payer MEDICARE ==
--- NOTE | 2018-05-03 15:44 | XR ---
Right knee HISTORY: Trauma and pain 3 views of the right knee correlated prior 01/02/2017 Arthropathy changes are present, there is marginal spurring tricompartmentally. No interval change. S uprapatellar joint effusion is present which is small. No fracture or dislocation. Question some kwame drocalcinosis. IMPRESSION: No acute abnormality. 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
== END | disposition home or self-care (01) ==
LOC: RADXRMAIN 12:27
PROVIDERS: ATTEND Internal Medicine
DX: M25.561 Pain in right knee (principal)

== ENCOUNTER → 2018-05-29 | Outpatient (CLI) | payer MEDICARE ==
--- NOTE | 2018-05-30 09:02 | MM ---
Reason for exam: screening (asymptomatic). Last mammogram was performed 1 year and 1 month ago. History: Patient is postmenopausal and has history of other cancer at age 56. Physical Findings: A clinical breast exam by your physician is recommended on an annual basis and results should be correlated with mammographic findings. MG 3D Screening Mammo W/Cad Bilateral CC and MLO view(s) were taken. Prior study comparison: April 22, 2017, bilateral MG 3d screening mammo w/cad. December 24, 2015, bilateral MG 3d screening mammo w/cad. There are scattered fibroglandular densities. There is no discrete abnormality. ASSESSMENT: Negative, BI-RAD 1 RECOMMENDATION: Routine screening mammogram of both breasts in 1 year.
== END ==
LOC: RADMAMWWP 09:01
PROVIDERS: ATTEND Internal Medicine
DX: Z12.31 Encounter for screening mammogram for malignant neoplasm of breast (principal)
CPT/HCPCS: 77063; 77067

== ENCOUNTER → 2019-04-02 | Outpatient (CLI) | payer MEDICARE ==
--- NOTE | 2019-04-02 11:33 | US ---
EXAMINATION TYPE: US venous doppler duplex UE LT DATE OF EXAM: 04/02/2019 COMPARISON: NONE CLINICAL HISTORY: M79.622 pain in left upper limb, R22.32 swelling. Patient states feeling a lump at inner left elbow. No redness. No swelling. No recent IV's or blood draws. SIDE PERFORMED: Left Left Arm: Negative for DVT. Area of concern scanned- no blood clot visualized. Grayscale, color doppler, spectral doppler imaging performed of the deep veins of the left upper extr emity. There is normal flow, compressibility and vascular waveforms. IMPRESSION: No ultrasound evidence for acute deep or superficial venous thrombosis in the left upper extremity.
== END | disposition home or self-care (01) ==
LOC: RADUSWWP 10:51
PROVIDERS: ATTEND Internal Medicine
DX: M79.622 Pain in left upper arm (principal); R22.32 Localized swelling, mass and lump, left upper limb

== ENCOUNTER → 2020-04-14 | Outpatient (CLI) | payer MEDICARE ==
--- NOTE | 2020-04-14 09:31 | BD ---
EXAMINATION TYPE: Axial Bone Density DATE OF EXAM: 04/14/2020 COMPARISON: 12.26.2014 CLINICAL HISTORY: 64 YR OLD FEMALE.....ICD-10 CODE: N95.1 POST MENOPAUSAL Height: 66.2 Weight: 297 FRAX RISK QUESTIONS: Current Tobacco Use: YES RISK FACTORS HISTORY OF: Postmenopausal woman: AT ABOUT AGE 48 Lost more than 2 inches in height since high school: YES Frequent falls: UNSTEADY WALKING Hyperparathyroidism: NO Adrenal Insufficiency: NO MEDICATIONS: Thyroid Medications: YES, SYNTHROID FOR ABOUT 4 YRS Additional Medications: BP MEDS, REFLUX MEDS, VIT D3 Additional History: HYPERTENSION, REFLUX EXAM MEASUREMENTS: Bone mineral densitometry was performed using the [employer] System. Bone mineral density as measured about the Lumbar spine is: ----- L1-L4(G/cm2): 1.145 T Score Values are as follows: ----- L1: -0.4 ----- L2: -0.8 ----- L3: -0.8 ----- L4: 0.5 ----- L1-L4: -0.3 Bone mineral density has: Decreased -4.5% since study of: 12.26.2014 Bone mineral density about the R hip (g/cm2): 1.018 Bone mineral density about the L hip (g/cm2): 1.084 T Score values are as follows: -----R Neck: -0.5 -----L Neck: -0.3 -----R Total: 0.1 -----L Total: 0.6 Bone mineral density has: Decreased -3.4% since study of: 12.26.2014 FRAX%s: THERE IS A 5.7% CHANCE FOR A MAJOR OSTEOPOROTIC FX AND A 0.4% FOR HIP......PROBABILITY FOR FX IN 10 YRS TIME IMPRESSION: Normal (Values between +1 and -1 indicate normal bone mass). Consider repeating this study in 5 year s or sooner if there is some new clinical indication. NOTE: T-SCORE=SD OF THE YOUNG ADULT MEAN.
--- NOTE | 2020-04-15 08:46 | MM ---
Reason for exam: screening (asymptomatic). Last mammogram was performed 1 year and 10 months ago. History: Patient is postmenopausal and has history of other cancer at age 56. Physical Findings: A clinical breast exam by your physician is recommended on an annual basis and results should be correlated with mammographic findings. MG 3D Screening Mammo W/Cad Bilateral CC and MLO view(s) were taken. Prior study comparison: May 29, 2018, bilateral MG 3d screening mammo w/cad. April 22, 2017, bilateral MG 3d screening mammo w/cad. There are scattered fibroglandular densities. No significant changes when compared with prior studies. ASSESSMENT: Negative, BI-RAD 1 RECOMMENDATION: Routine screening mammogram of both breasts in 1 year.
== END | disposition home or self-care (01) ==
LOC: RADMAMWWP 07:00
PROVIDERS: ATTEND Internal Medicine
DX: Z12.31 Encounter for screening mammogram for malignant neoplasm of breast (principal); N95.1 Menopausal and female climacteric states
CPT/HCPCS: 77063; 77067; 77080

== ENCOUNTER 2020-06-26 07:31 | Day surgery (SDC) | payer MEDICARE ==
[2020-06-23 15:14] VITALS: BMI 45.6
[~2020-06-26 07:31] MED LIST: LACTATED RINGERS 1,000 ML IV SCH; LIDOCAINE 1% (10MG/ML) FOR IV START INTRADERMA PRN
[2020-06-26 08:06] VITALS: RESP 18; TEMP 97.8
[2020-06-26] MEDS ORDERED: LACTATED RINGERS 1,000 ML IV ONE (08:14)
[2020-06-26] MEDS ORDERED: PROPOFOL 10 MG/ML 20 ML VIAL IV ONE (08:29)
--- NOTE | 2020-06-26 08:45 | P.GSHP ---
History of Present Illness H&P Date: 06/26/20 Chief Complaint: History of colon polyps This is a 64-year-old female been safe for colonoscopy increase history of colon polyps 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 glaucoma History of Any Multi-Drug Resistant Organisms: None Reported Past Surgical History: Bladder Surgery, Section Additional Past Surgical History / Comment(s): bunionectomy, x3, cancerous lesion removed from labia 2010. Past Anesthesia/Blood Transfusion Reactions: No Reported Reaction Smoking Status: Current every day smoker - Past Family History Mother Additional Family Medical History / Comment(s): pt. reports mother had an aortic valve replacement Medications and Allergies Home Medications Medication Instructions Recorded Confirmed Type Diazepam [Valium] 5 mg PO BID 08/12/13 06/23/20 History Levothyroxine Sodium [Synthroid] 100 mcg PO QAM 04/17/18 06/23/20 History HYDROcodone/APAP 10-325MG [[place] 1 tab PO QID 06/23/20 06/23/20 History 10-325] carvediloL [Coreg] 3.125 mg PO QAM 06/23/20 06/23/20 History lisinopriL 20 mg PO DAILY 06/23/20 06/23/20 History Allergies Allergy/AdvReac Type Severity Reaction Status Date / Time cephalexin [From Keflex] Allergy Rash/Hives Verified 06/23/20 15:08 amlodipine [From Norvasc] AdvReac Nausea & Verified 06/23/20 15:08 Vomiting morphine AdvReac Nausea & Verified 06/23/20 15:08 Vomiting Surgical - Exam Vital Signs Temp Pulse Resp BP Pulse Ox 97.8 F 78 18 157/72 98 06/26/20 08:05 06/26/20 08:05 06/26/20 08:05 06/26/20 08:05 06/26/20 08:05 - General well developed, well nourished, no distress - Eyes PERRL - ENT normal pinna - Neck no masses - Respiratory normal expansion - Cardiovascular Rhythm: regular - Abdomen Abdomen: soft, non tender Assessment and Plan Assessment: History: Polyps. We'll perform colonoscopy
--- NOTE | 2020-06-26 08:47 | P.OP ---
Date of Procedure: 06/26/20 Preoperative Diagnosis: History of colon polyps Postoperative Diagnosis: Diverticulosis Colon polyps Procedure(s) Performed: Colonoscopy Anesthesia: MAC Surgeon: Graham Bai Pathology: other (Colon polyps) Condition: stable Disposition: PACU Description of Procedure: The patient's placed on the endoscopy table in the lateral position. She received IV sedation. Digital rectal exam was performed which revealed no abnormalities. Flexible colonoscope was then placed patient anus and passed throughout the entire colon. The ileocecal valve was visualized. The cecum appeared normal. In the right colon there is several small polyp was removed with the cold forcep. Scope was brought back and the transverse colon another polyp was removed with cold forcep. Scope brought back further the remainder of the transverse colon appeared normal. In the descending and; there is mild diverticular changes. Scope was then brought back the rectum and this appeared normal. Scope was withdrawn for patient.
[2020-06-26 09:04] VITALS: BP 126/77; PULSE 74
== END 2020-06-26 09:12 | disposition home or self-care (01) ==
LOC: ORWHC2ENDO 07:31
PROVIDERS: ATTEND Surgery
DX: Z12.11 Encounter for screening for malignant neoplasm of colon (principal); D12.3 Benign neoplasm of transverse colon; D12.2 Benign neoplasm of ascending colon; K57.30 Diverticulosis of large intestine without perforation or abscess without bleeding; I10 Essential (primary) hypertension; M19.90 Unspecified osteoarthritis, unspecified site; E07.9 Disorder of thyroid, unspecified; Z85.44 Personal history of malignant neoplasm of other female genital organs; F41.9 Anxiety disorder, unspecified; H40.9 Unspecified glaucoma; Z98.891 History of uterine scar from previous surgery; Z98.890 Other specified postprocedural states; F17.200 Nicotine dependence, unspecified, uncomplicated; Z82.49 Family history of ischemic heart disease and other diseases of the circulatory system; Z79.890 Hormone replacement therapy; Z79.899 Other long term (current) drug therapy; Z88.1 Allergy status to other antibiotic agents; Z88.5 Allergy status to narcotic agent; Z88.8 Allergy status to other drugs, medicaments and biological substances
CPT/HCPCS: 88305; 45380; J2704

== ENCOUNTER 2021-02-01 17:23 | Emergency (ER) | payer MEDICARE ==
[2021-02-01 17:41] VITALS: BP 199/85; PULSE 88; RESP 17; TEMP 98.3
[2021-02-01] MEDS ORDERED: KETOROLAC 15 MG/ML 1 ML VIAL IM STA (18:13)
--- NOTE | 2021-02-01 18:21 | ED ---
Extremity Problem HPI - General Chief complaint: Extremity Problem,Nontraumatic Stated complaint: Left arm swollen Time Seen by Provider: 02/01/21 18:02 Source: patient Mode of arrival: ambulatory Limitations: no limitations - History of Present Illness Initial comments: 65-year-old female patient presents to the emergency department today for evaluation of left elbow pain and swelling. States that it started yesterday and has worsened throughout the day. She did take a half a Tow and ibuprofen earlier today without relief. She denies any redness over the arm. Denies numbness or tingling. States she does have shooting pains down to her hand and she feels that her fingers are swollen. States it hurts worse with movement, especially when she flexes the elbow. She is able to extend. She denies any She denies any known injury. Denies history of blood clot. Denies fever or chills. Denies history of diabetes. Patient denies any recent rash, cough, shortness of breath, chest pain, abdominal pain, nausea, vomiting, diarrhea, constipation, back pain, numbness, tingling, dizziness, weakness, hematuria, dysuria, urinary urgency, urinary frequency, headache, visual changes, or any other complaints. - Related Data Home Medications Medication Instructions Recorded Confirmed Diazepam [Valium] 5 mg PO BID 08/12/13 06/23/20 Levothyroxine Sodium [Synthroid] 100 mcg PO QAM 04/17/18 06/23/20 HYDROcodone/APAP 10-325MG [[place] 1 tab PO QID 06/23/20 06/23/20 10-325] carvediloL [Coreg] 3.125 mg PO QAM 06/23/20 06/23/20 lisinopriL 20 mg PO DAILY 06/23/20 06/23/20 Previous Rx's Medication Instructions Recorded Amoxicillin 875 mg PO Q12HR #20 tablet 02/01/21 Sulfamethoxazole/Trimethoprim 1 each PO BID #20 tablet 02/01/21 [Bactrim DS 800-160 mg] Allergies Allergy/AdvReac Type Severity Reaction Status Date / Time cephalexin [From Keflex] Allergy Rash/Hives Verified 02/01/21 17:41 amlodipine [From Norvasc] AdvReac Nausea & Verified 02/01/21 17:41 Vomiting morphine AdvReac Nausea & Verified 02/01/21 17:41 Vomiting Review of Systems ROS Statement: Those systems with pertinent positive or pertinent negative responses have been documented in the HPI. ROS Other: All systems not noted in ROS Statement are negative. 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 glaucoma History of Any Multi-Drug Resistant Organisms: None Reported Past Surgical History: Bladder Surgery, Section Additional Past Surgical History / Comment(s): bunionectomy, x3, cancerous lesion removed from labia 2010. Past Anesthesia/Blood Transfusion Reactions: No Reported Reaction Past Psychological History: Depression Smoking Status: Current every day smoker Past Alcohol Use History: None Reported Past Drug Use History: None Reported - Past Family History Mother Additional Family Medical History / Comment(s): pt. reports mother had an aortic valve replacement General Exam Limitations: no limitations General appearance: alert, in no apparent distress, other (This is a well- developed, well-nourished adult female patient in no acute distress.) ENT exam: Present: normal exam, normal oropharynx, mucous membranes moist Respiratory exam: Present: normal lung sounds bilaterally. Absent: respiratory distress, wheezes, rales, rhonchi, stridor Cardiovascular Exam: Present: regular rate, normal rhythm, normal heart sounds. Absent: systolic murmur, diastolic murmur, rubs, gallop, clicks GI/Abdominal exam: Present: soft, normal bowel sounds. Absent: distended, tenderness, guarding, rebound, rigid Extremities exam: Present: full ROM, tenderness (Left elbow), normal capillary refill, other (Soft tissue swelling surrounding the left elbow). Absent: pedal edema, joint swelling, calf tenderness Neurological exam: Present: alert, oriented X3, CN II-XII intact Psychiatric exam: Present: normal affect, normal mood Skin exam: Present: warm, dry, intact, normal color. Absent: rash Course Vital Signs 02/01/21 17:33 Temperature 98.3 F Pulse Rate 88 Respiratory 17 Rate Blood Pressure 199/85 O2 Sat by Pulse 95 Oximetry Medical Decision Making - Medical Decision Making 65-year-old female patient presents to the emergency department today for evaluation of pain and swelling to the left elbow. Physical examination did reveal mild soft tissue swelling. No overlying erythema. She is afebrile, vital signs. X-ray negative, ultrasound negative. She'll be started on antibiotics a possible infected bursitis. She'll be discharged follow up with her primary care physician for recheck in 1-2 days. Return parameters were discussed in detail. She verbalizes understanding and agrees with this plan. Case discussed with my attending Dr. Cabral. - Radiology Data Radiology results: report reviewed, image reviewed 2 views of the left elbow are obtained. Report is reviewed in its entirety. Impression by Dr. Fraser shows mild spurring. No fracture seen. Ultrasound of the left upper extremity is obtained. Report was reviewed in its entirety. Impression by Dr. Fraser shows negative for DVT. Disposition Clinical Impression: Bursitis of left elbow Disposition: HOME SELF-CARE Condition: Good Instructions (If sedation given, give patient instructions): Elbow Bursitis (ED) Additional Instructions: Take antibiotics as directed. Continue home pain medications. Follow-up with the primary care physician for recheck in 1-2 days. Return for any new, worsening, or concerning symptoms Prescriptions: Amoxicillin 875 mg PO Q12HR #20 tablet Sulfamethoxazole/Trimethoprim [Bactrim DS 800-160 mg] 1 each PO BID #20 tablet Is patient prescribed a controlled substance at d/c from ED?: No Referrals: Ailyn Garzon MD [Primary Care Provider] - 1-2 days Time of Disposition: 19:43
--- NOTE | 2021-02-01 19:38 | XR ---
EXAMINATION TYPE: XR elbow complete LT DATE OF EXAM: 02/01/2021 COMPARISON: NONE HISTORY: Chest pain TECHNIQUE: 2 views FINDINGS: There is some spurring on the olecranon process. I see no fracture nor dislocation. Joint s paces are normal. IMPRESSION: Mild spurring. No fracture seen.
--- NOTE | 2021-02-01 19:39 | US ---
EXAMINATION TYPE: US venous doppler duplex UE LT DATE OF EXAM: 02/01/2021 COMPARISON: US 04/02/2019 CLINICAL HISTORY: LEFT ARM PAIN/SWELLING. SIDE PERFORMED: LEFT Left Arm: Negative for DVT Area of pain scanned, left antecubital area, compressible vessel with flow seen (cephalic). No abnorm ality noted. IMPRESSION: Grayscale, color doppler, spectral doppler imaging performed of the deep veins of the upper extremiti es. There is normal flow, compressability and vascular waveforms. No sign of deep vein thrombosis in the left arm.
[2021-02-01] MEDS ORDERED: SULFAMETHOX-TMP 800-160MG 1 EACH TAB PO STA (19:42)
[2021-02-01] MEDS ORDERED: AMOXICILLIN 875 MG TAB PO STA (19:42)
== END 2021-02-01 19:53 | disposition home or self-care (01) ==
LOC: EC 17:23
DX: M70.22 Olecranon bursitis, left elbow (principal); M79.89 Other specified soft tissue disorders; F17.200 Nicotine dependence, unspecified, uncomplicated; I10 Essential (primary) hypertension; E07.9 Disorder of thyroid, unspecified; Z88.5 Allergy status to narcotic agent; Z88.8 Allergy status to other drugs, medicaments and biological substances; Z88.1 Allergy status to other antibiotic agents; Z79.890 Hormone replacement therapy; Z79.899 Other long term (current) drug therapy
CPT/HCPCS: 99284 ×2; 96372 ×2; 73080; 93971; J1885

== ENCOUNTER → 2021-06-11 | Outpatient (CLI) | payer MEDICARE ==
--- NOTE | 2021-06-15 10:50 | MM ---
Reason for exam: screening (asymptomatic). Last mammogram was performed 1 year and 2 months ago. History: Patient is postmenopausal and has history of other cancer at age 56. Physical Findings: A clinical breast exam by your physician is recommended on an annual basis and results should be correlated with mammographic findings. MG 3D Screening Mammo W/Cad Bilateral CC and MLO view(s) were taken. Prior study comparison: April 14, 2020, bilateral MG 3d screening mammo w/cad. May 29, 2018, bilateral MG 3d screening mammo w/cad. There are scattered fibroglandular densities. No significant changes when compared with prior studies. ASSESSMENT: Negative, BI-RAD 1 RECOMMENDATION: Routine screening mammogram of both breasts in 1 year.
== END | disposition home or self-care (01) ==
LOC: RADMAMWWP 07:09
PROVIDERS: ATTEND Internal Medicine
DX: Z12.31 Encounter for screening mammogram for malignant neoplasm of breast (principal); Z78.0 Asymptomatic menopausal state
CPT/HCPCS: 77063; 77067

== ENCOUNTER → 2022-05-03 | Outpatient (CLI) | payer MEDICARE ==
--- NOTE | 2022-05-03 09:08 | XR ---
EXAMINATION TYPE: XR chest 2V DATE OF EXAM: 05/03/2022 COMPARISON: 04/17/2018 TECHNIQUE: PA and lateral views submitted. HISTORY: Shortness of breath FINDINGS: The lungs are clear and there is no pneumothorax, pleural effusion, or focal pneumonia. Heart size normal and no overt failure. Osseous structures demonstrate hypertrophic and degenerative changes of the spine. Hypertrophic and degenerative changes of the spine. Surgical abdomen. Mild hyperinflation of the lungs. IMPRESSION: 1. No acute process. Mild hyperinflation can be associated with mild asthma or COPD correlate clinica lly.
== END | disposition home or self-care (01) ==
LOC: RADXRMAIN 08:11
PROVIDERS: ATTEND Internal Medicine
DX: J44.9 Chronic obstructive pulmonary disease, unspecified (principal)
CPT/HCPCS: 71046

== ENCOUNTER → 2022-06-17 | Outpatient (CLI) | payer MEDICARE ==
--- NOTE | 2022-06-17 11:46 | USB ---
Reason for Exam: Additional evaluation requested from abnormal screening. Patient History: Menarche at age 18. First Full-Term at age 19. Postmenopausal. Other cancer, age 56. Risk Values: Liz 5 year model risk: 1.1%. NCI Lifetime model risk: 4.3%. Technique: Method: Targeted. Prior Study Comparison: 04/14/2020 Bilateral Screening Mammogram, [facility]. 06/11/2021 Bilateral Screening Mammogram, [facility]. 06/14/2022 Bilateral MG 3D screening mammo w/cad, [facility]. Findings: The lateral section of the breast of the left breast and the axilla of the left breast were scanned. A complete US of all four quadrants of the breast, axilla and retro-areolar region were reviewed. Lymph node at 3:00 17 cm from the nipple. No solid or cystic masses are identified.A limited US of all left breast in the area of concern, axilla regions were reviewed. Lymph node at 3:00 17 cm from the nipple. No solid or cystic masses are identified. Overall Assessment: Benign, BI-RAD 2 Management: Screening Mammogram of both breasts in 1 year. A clinical breast exam by your physician is recommended on an annual basis and results should be correlated with mammographic findings. This exam should not preclude additional follow-up of suspicious palpable abnormalities. Results were given to the patient verbally at the time of exam. Electronically signed and approved by: Mathew Fisher DO
== END | disposition home or self-care (01) ==
LOC: RADUSWWP 10:54
PROVIDERS: ATTEND Internal Medicine
DX: R92.8 Other abnormal and inconclusive findings on diagnostic imaging of breast (principal); Z78.0 Asymptomatic menopausal state

== ENCOUNTER → 2023-03-15 | Outpatient (CLI) | payer MEDICARE ==
--- NOTE | 2023-03-15 15:53 | US ---
EXAMINATION TYPE: US venous doppler duplex LE LT DATE OF EXAM: 03/15/2023 3:45 PM COMPARISON: NONE CLINICAL INDICATION: Female, 67 years old with history of M79.605 PAIN IN LEFT LEG; Since . P atient denies any other signs or symptoms or relevant history SIDE PERFORMED: Left TECHNIQUE: The lower extremity deep venous system is examined utilizing real time linear array sonog cipriano with graded compression, doppler sonography and color-flow sonography. VESSELS IMAGED: Common Femoral Vein Deep Femoral Vein Greater Saphenous Vein * Femoral Vein Popliteal Vein Small Saphenous Vein * Proximal Calf Veins (* superficial vessels) Right Leg: NA Left Leg: Negative for DVT IMPRESSION: 1. Left lower extremity ultrasound negative for deep venous thrombosis.
== END | disposition home or self-care (01) ==
LOC: RADUSWWP 15:28
PROVIDERS: ATTEND Internal Medicine
DX: M79.605 Pain in left leg (principal)

== ENCOUNTER 2023-05-01 07:37 | Emergency (ER) | payer MEDICARE ==
[2023-05-01 07:46] VITALS: RESP 18
[2023-05-01] MEDS ORDERED: KETOROLAC 15 MG/ML 1 ML VIAL IM STA (08:23)
--- NOTE | 2023-05-01 08:26 | ED ---
General Adult HPI - General Chief complaint: Extremity Problem,Nontraumatic Stated complaint: Lt leg pain Time Seen by Provider: 05/01/23 07:46 Source: patient, RN notes reviewed Mode of arrival: ambulatory Limitations: no limitations - History of Present Illness Initial comments: Patient is a pleasant 67-year-old female presenting to the emergency department with left leg pain. Discomfort is mostly in the knee. Patient does have chronic right knee problems and states it is "[id number] "left knee pain has been present for the past month. Discomfort is mostly of the knee however does radiate up and down. No leg swelling. No redness. No fever. No weakness. No loss of sensation. No back pain. No hip pain. Patient has been hearing click ing of her knee. Patient did have ultrasound done however has not had x-ray done. Patient has been taking Motrin and [place] for pain. - Related Data Home Medications Medication Instructions Recorded Confirmed Diazepam [Valium] 5 mg PO BID 08/12/13 06/23/20 Levothyroxine Sodium [Synthroid] 100 mcg PO QAM 04/17/18 06/23/20 HYDROcodone/APAP 10-325MG [[place] 1 tab PO QID 06/23/20 06/23/20 10-325] carvediloL [Coreg] 3.125 mg PO QAM 06/23/20 06/23/20 lisinopriL 20 mg PO DAILY 06/23/20 06/23/20 Previous Rx's Medication Instructions Recorded Amoxicillin 875 mg PO Q12HR #20 tablet 02/01/21 Sulfamethoxazole/Trimethoprim 1 each PO BID #20 tablet 02/01/21 [Bactrim DS 800-160 mg] Naproxen [EC-Naproxen] 500 mg PO BID #30 tab 05/01/23 Allergies Allergy/AdvReac Type Severity Reaction Status Date / Time cephalexin [From Keflex] Allergy Rash/Hives Verified 02/01/21 17:41 amlodipine [From Norvasc] AdvReac Nausea & Verified 02/01/21 17:41 Vomiting morphine AdvReac Nausea & Verified 02/01/21 17:41 Vomiting Review of Systems ROS Statement: Those systems with pertinent positive or pertinent negative responses have been documented in the HPI. ROS Other: All systems not noted in ROS Statement are negative. Constitutional: Denies: fever Eyes: Denies: eye pain ENT: Denies: ear pain Respiratory: Denies: cough Cardiovascular: Denies: chest pain Endocrine: Denies: fatigue Gastrointestinal: Denies: abdominal pain Musculoskeletal: Reports: as per HPI, arthralgia. Denies: back pain 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 glaucoma History of Any Multi-Drug Resistant Organisms: None Reported Past Surgical History: Bladder Surgery, Section Additional Past Surgical History / Comment(s): bunionectomy, x3, cancerous lesion removed from labia 2011. Past Anesthesia/Blood Transfusion Reactions: No Reported Reaction Past Psychological History: Depression Smoking Status: Current every day smoker Past Alcohol Use History: None Reported Past Drug Use History: None Reported - Past Family History Mother Additional Family Medical History / Comment(s): pt. reports mother had an aortic valve replacement General Exam Limitations: no limitations General appearance: alert, in no apparent distress Head exam: Present: normocephalic Eye exam: Present: normal appearance Neck exam: Present: normal inspection. Absent: tenderness Respiratory exam: Present: normal lung sounds bilaterally Cardiovascular Exam: Present: regular rate, normal rhythm Expanded Peripheral pulses: 2+: Posterior Tibialis (R), Posterior Tibialis (L), Dorsalis Pedis (R), Dorsalis Pedis (L) GI/Abdominal exam: Present: soft. Absent: tenderness, pulsatile mass Extremities exam: Present: tenderness (Left knee. No swelling. No erythema. No warmth. Distally the extremity is neurovascular intact.). Absent: calf tenderness Neurological exam: Present: alert. Absent: motor sensory deficit Psychiatric exam: Present: normal affect, normal mood Skin exam: Present: normal color. Absent: erythema Course Vital Signs 05/01/23 07:38 Temperature 97.6 F Pulse Rate 74 Respiratory 18 Rate Blood Pressure 174/86 O2 Sat by Pulse 97 Oximetry Medical Decision Making - Medical Decision Making Was pt. sent in by a medical professional or institution (, PA, EARLY CHILDHOOD DIRECTOR, urgent care, hospital, or senior living...) When possible be specific @ -No Did you speak to anyone other than the patient for history (EMS, parent, family, police, friend...)? What history was obtained from this source @ -No Did you review nursing and triage notes (agree or disagree)? Why? @ -I reviewed and agree with nursing and triage notes Were old charts reviewed (outside hosp., previous admission, EMS record, old EKG, old radiological studies, urgent care reports/EKG's, senior living records)? Report findings @ -No old charts were reviewed Differential Diagnosis (chest pain, altered mental status, abdominal pain women, abdominal pain men, vaginal bleeding, weakness, fever, dyspnea, syncope, headache, dizziness, GI bleed, back pain, seizure, CVA, palpatations, mental health, musculoskeletal)? @ -Differential Musculoskeletal Muscular strain, contusion, ligament sprain, fracture, arthritis, septic arthritis, bursitis, cellulitis, muscle spasm, nerve compression, DVT, arterial occlusion, herpes zoster, electrolyte abnormality, tumor.... This is not meant to be in all inclusive list e EKG interpreted by me (3pts min.). @ -As above X-rays interpreted by me (1pt min.). @ -Left knee x-ray does show some arthritic changes CT interpreted by me (1pt min.). @ -None done U/S interpreted by me (1pt. min.). @ -None done What testing was considered but not performed or refused? (CT, X-rays, U/S, labs)? Why? @ -Consider ultrasound however patient does not have symptoms consistent with DVT and did have negative ultrasound while having the same symptoms. What meds were considered but not given or refused? Why? @ -None Did you discuss the management of the patient with other professionals (professionals i.e. , PA, EARLY CHILDHOOD DIRECTOR, lab, RT, psych nurse, healthcare social worker, site specialist, teacher, business services officer, hospice case manager)? Give summary @ -No Was smoking cessation discussed for >3mins.? @ -No Was critical care preformed (if so, how long)? @ -No Were there social determinants of health that impacted care today? How? (Homelessness, low income, unemployed, alcoholism, drug addiction, transportation, low edu. Level, literacy, decrease access to med. care, [facility]cc, rehab)? @ -No Was there de-escalation of care discussed even if they declined (Discuss DNR or withdrawal of care, Hospice)? DNR status @ -No What co-morbidities impacted this encounter? (DM, HTN, Smoking, COPD, CAD, Cancer, CVA, ARF, Chemo, Hep., AIDS, mental health diagnosis, sleep apnea, morbid obesity)? @ -None Was patient admitted / discharged? Hospital course, mention meds given and route, prescriptions, significant lab abnormalities, going to OR and other pertinent info. @ -Patient reevaluated and updated. Patient recommended orthopedic follow-up and will be prescribed anti-inflammatories. Patient advised not to take these with Motrin. Undiagnosed new problem with uncertain prognosis? @ -No Drug Therapy requiring intensive monitoring for toxicity (Heparin, Nitro, Ins ulin, Cardizem)? @ -No Were any procedures done? @ -No Diagnosis/symptom? @ -Left knee arthralgia t Acute, or Chronic, or Acute on Chronic? @ -Acute t Uncomplicated (without systemic symptoms) or Complicated (systemic symptoms)? @ -Default Side effects of treatment? @ -No Exacerbation, Progression, or Severe Exacerbation? @ -No Poses a threat to life or bodily function? How? (Chest pain, [place], [place], pneumonia, PE, COPD, DKA, ARF, appy, cholecystitis, CVA, Diverticulitis, Homicidal, Suicidal, threat to staff... and all critical care pts) @ -No Disposition Clinical Impression: Arthralgia of left knee Disposition: HOME SELF-CARE Condition: Stable Instructions (If sedation given, give patient instructions): Arthralgia (ED), Knee Pain (ED) Additional Instructions: Prescription sent to pharmacy. Please do follow-up with primary care physician and orthopedics in the next couple of days for recheck. Return for increased pain, swelling, fever, weakness, worsening or change in symptoms or other concerns. Prescriptions: Naproxen [EC-Naproxen] 500 mg PO BID #30 tab Is patient prescribed a controlled substance at d/c from ED?: No Referrals: Ailyn Garzon MD [Primary Care Provider] - 1-2 days Jose Maria Arroyo MD [Medical Doctor] - 1-2 days Time of Disposition: 09:31
--- NOTE | 2023-05-01 09:02 | XR ---
EXAMINATION TYPE: XR knee complete LT DATE OF EXAM: 05/01/2023 COMPARISON: None HISTORY: Pain x1 month TECHNIQUE: 3 view left knee FINDINGS: Posterior superior patellar spur is present. No joint effusion is evident. There is narrowi ng of the medial compartment joint space. Medial femoral condylar and medial tibial plateau spurring is present. No acute fracture or dislocation is evident. Follow up exams can be performed 7-10 days from acute tr auma for continued pain. IMPRESSION: 1. Mild degenerative changes medial compartment left knee
[2023-05-01 10:21] VITALS: BP 158/62; PULSE 68; TEMP 98
== END 2023-05-01 09:50 | disposition home or self-care (01) ==
LOC: EC 07:37
DX: M17.12 Unilateral primary osteoarthritis, left knee (principal); I10 Essential (primary) hypertension; M19.90 Unspecified osteoarthritis, unspecified site; E07.9 Disorder of thyroid, unspecified; F32.A Depression, unspecified; F17.200 Nicotine dependence, unspecified, uncomplicated; Z79.1 Long term (current) use of non-steroidal anti-inflammatories (NSAID); Z79.890 Hormone replacement therapy; Z79.899 Other long term (current) drug therapy; Z88.5 Allergy status to narcotic agent; Z88.1 Allergy status to other antibiotic agents; Z88.8 Allergy status to other drugs, medicaments and biological substances
CPT/HCPCS: 73562; 99283; 96372; J1885

== ENCOUNTER → 2023-08-02 | Outpatient (CLI) | payer MEDICARE ==
--- NOTE | 2023-08-02 14:08 | XR ---
EXAMINATION TYPE: XR knee complete RT DATE OF EXAM: 08/02/2023 COMPARISON: NONE HISTORY: Pain TECHNIQUE: Three views are submitted. FINDINGS: Moderate to severe narrowing of the medial compartment and patellofemoral compartment with mild ramsay es noted involving the lateral compartment. Marginal spurring. No erosive changes. Generalized demine ralization. Chondrocalcinosis.. Osseous structures are intact. No acute fracture seen. IMPRESSION: 1. Moderate to severe osteoarthritis. 2. No acute fracture.
== END | disposition home or self-care (01) ==
LOC: RADXRMAIN 13:48
PROVIDERS: ATTEND Internal Medicine
DX: M17.11 Unilateral primary osteoarthritis, right knee (principal)

== ENCOUNTER 2023-08-12 04:56 | Emergency (ER) | payer MEDICARE ==
--- NOTE | 2023-08-12 05:19 | ED ---
GI Bleed HPI - General Chief complaint: GI Bleed Stated complaint: vaginal bleeding Time Seen by Provider: 08/12/23 04:59 Source: patient, RN notes reviewed, old records reviewed Mode of arrival: ambulatory Limitations: no limitations - History of Present Illness Initial comments: This is a 68-year-old female to the ER for evaluation today. Patient [place] for evaluation regards to bleeding versus rectal bleeding. Patient is concerned that she could have bleeding from 1 of those 2 areas. She is unsure which she has no abdominal pain no nausea vomiting no blood thinners no diarrhea. No other complaints MD complaint: blood streaked emesis, melena -: hour(s) Radiation: none Severity scale (1-10): 3 Quality: painless, cramping Consistency: constant Improves with: none Worsens with: none Context: history of GI bleed Associated Symptoms: denies other symptoms - Related Data Home Medications Medication Instructions Recorded Confirmed Diazepam [Valium] 5 mg PO BID 08/12/13 06/23/20 Levothyroxine Sodium [Synthroid] 100 mcg PO QAM 04/17/18 06/23/20 HYDROcodone/APAP 10-325MG [[place] 1 tab PO QID 06/23/20 06/23/20 10-325] carvediloL [Coreg] 3.125 mg PO QAM 06/23/20 06/23/20 lisinopriL 20 mg PO DAILY 06/23/20 06/23/20 Previous Rx's Medication Instructions Recorded Amoxicillin 875 mg PO Q12HR #20 tablet 02/01/21 Sulfamethoxazole/Trimethoprim 1 each PO BID #20 tablet 02/01/21 [Bactrim DS 800-160 mg] Naproxen [EC-Naproxen] 500 mg PO BID #30 tab 05/01/23 Allergies Allergy/AdvReac Type Severity Reaction Status Date / Time cephalexin [From Keflex] Allergy Rash/Hives Verified 02/01/21 17:41 amlodipine [From Norvasc] AdvReac Nausea & Verified 02/01/21 17:41 Vomiting morphine AdvReac Nausea & Verified 02/01/21 17:41 Vomiting Review of Systems ROS Statement: Those systems with pertinent positive or pertinent negative responses have been documented in the HPI. ROS Other: All systems not noted in ROS Statement are negative. 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 glaucoma History of Any Multi-Drug Resistant Organisms: None Reported Past Surgical History: Bladder Surgery, Section Additional Past Surgical History / Comment(s): bunionectomy, x3, cancerous lesion removed from labia 2010. Past Anesthesia/Blood Transfusion Reactions: No Reported Reaction Past Psychological History: Depression Smoking Status: Current every day smoker Past Alcohol Use History: None Reported Past Drug Use History: None Reported - Past Family History Mother Additional Family Medical History / Comment(s): pt. reports mother had an aortic valve replacement General Exam Limitations: no limitations General appearance: alert, in no apparent distress Head exam: Present: atraumatic, normocephalic, normal inspection Eye exam: Present: normal appearance, PERRL, EOMI. Absent: scleral icterus, conjunctival injection, periorbital swelling ENT exam: Present: normal exam, mucous membranes moist Neck exam: Present: normal inspection. Absent: tenderness, meningismus, lymphadenopathy Respiratory exam: Present: normal lung sounds bilaterally. Absent: respiratory distress, wheezes, rales, rhonchi, stridor Cardiovascular Exam: Present: regular rate, normal rhythm, normal heart sounds. Absent: systolic murmur, diastolic murmur, rubs, gallop, clicks GI/Abdominal exam: Present: soft, normal bowel sounds. Absent: distended, tenderness, guarding, rebound, rigid Extremities exam: Present: normal inspection, full ROM, normal capillary refill. Absent: tenderness, pedal edema, joint swelling, calf tenderness Back exam: Present: normal inspection Neurological exam: Present: alert, oriented X3, CN II-XII intact Psychiatric exam: Present: normal affect, normal mood Skin exam: Present: warm, dry, intact, normal color. Absent: rash Course Vital Signs 08/12/23 08/12/23 04:57 06:20 Temperature 97.8 F 98.7 F Pulse Rate 96 75 Respiratory 16 17 Rate Blood Pressure 118/64 110/70 O2 Sat by Pulse 95 99 Oximetry - Reevaluation(s) Reevaluation #1: Medical records reviewed Reevaluation #2: Symptoms improved Reevaluation #3: Patient informed of results questions answered Reevaluation #4: Was pt. sent in by a medical professional or institution ([facility], HAND WASHER, urgent care, hospital, or group home...) When possible be specific @ -no Did you speak to anyone other than the patient for history (EMS, parent, family, police, friend...)? What history was obtained from this source @ -no Did you review nursing and triage notes (agree or disagree)? Why? @ -agree Are old charts reviewed (outside hosp., previous admission, EMS record, old EKG, old radiological studies, urgent care reports/EKG's, group home records)? Report findings @ -yes Differential Diagnosis (chest pain, altered mental status, abdominal pain women, abdominal pain men, vaginal bleeding, weakness, fever, dyspnea, syncope, headach e, dizziness, GI bleed, back pain, seizure, CVA, palpatations, mental health, musculoskeletal)? @ -prior EKG interpreted by me (3pts min.). @ -no X-rays interpreted by me (1pt min.). @ -no CT interpreted by me (1pt min.). @ -no U/S interpreted by me (1pt. min.). @ -no What testing was considered but not performed or refused? (CT, X-rays, U/S, labs)? Why? @ -none What meds were considered but not given or refused? Why? @ -none Did you discuss the management of the patient with other professionals (professionals i.e. [facility]olds[facility], HAND WASHER, lab, RT, psych nurse, social research assistant, manager licensing, teacher, seal delivery vehicle officer, casey saw operator)? Give summary @ -no Was smoking cessation discussed for >3mins.? @ -no Was critical care preformed (if so, how long)? @ -no Were there social determinants of health that impacted care today? How? (Homelessness, low income, unemployed, alcoholism, drug addiction, transpor tation, low edu. Level, literacy, decrease access to med. care, senior living, rehab)? @ -none Was there de-escalation of care discussed even if they declined (Discuss DNR or withdrawal of care, Hospice)? DNR status @ -no What co-morbidities impacted this encounter? (DM, HTN, Smoking, COPD, CAD, Cancer, CVA, ARF, Chemo, Hep., AIDS, mental health diagnosis, sleep apnea, morbid obesity)? @ -none Was patient admitted / discharged? Hospital course, mention meds given and route, prescriptions, significant lab abnormalities, going to OR and other pertinent info. @ -68 female to the ER for evaluation presents today for evaluation regards to vaginal bleeding versus rectal bleeding which does appear to be rectal bleeding at this time we will primarily follow-up with primary care for further evaluation does not want further inpatient hospitalization currently Discharge Undiagnosed new problem with uncertain prognosis? @ -no Drug Therapy requiring intensive monitoring for toxicity (Heparin, Nitro, In sulin, Cardizem)? @ -no Were any procedures done? @ -no Diagnosis/symptom? @ -Vaginal bleeding versus rectal bleeding Acute, or Chronic, or Acute on Chronic? @ -Acute Uncomplicated (without systemic symptoms) or Complicated (systemic symptoms)? @ -Complicated Side effects of treatment? @ -no Exacerbation, Progression, or Severe Exacerbation? @ -exacerbation Poses a threat to life or bodily function? How? (Chest pain, [place], [place], pneumonia, PE, COPD, DKA, ARF, appy, cholecystitis, CVA, Diverticulitis, Homicidal, Suicidal, threat to staff... and all critical care pts) @ -no Reevaluation #5: Differential GI Bleed: Esophageal varices, aortoenteric fistula, Nasrin-Mathur, gastritis, peptic ulcer disease, diverticulosis, inflammatory bowel disease, hemorrhoids, fissure, colitis, malignancy, Meckels diverticulum, this is not meant to be an all- inclusive list. Medical Decision Making - Medical Decision Making 68 female with vaginal versus rectal bleeding here in the emergency room. Patient has normal hemoglobin normal vital signs no active bleeding noted here in the emergency room and feels well prefers discharge - Lab Data Result diagrams: 08/12/23 05:32 08/12/23 05:32 Lab Results 08/12/23 08/12/23 08/12/23 Range/Units 05:26 05:32 05:32 WBC 17.4 H (3.8-10.6) k/uL RBC 4.09 (3.80-5.40) m/uL Hgb 12.7 (11.4-16.0) gm/dL Hct 40.3 (34.0-46.0) % MCV 98.4 (80.0-100.0) fL MCH 31.0 (25.0-35.0) pg MCHC 31.5 (31.0-37.0) g/dL RDW 13.6 (11.5-15.5) % Plt Count 223 (150-450) k/uL MPV 8.5 Neutrophils % 80 % Lymphocytes % 14 % Monocytes % 3 % Eosinophils % 1 % Basophils % 1 % Neutrophils # 13.9 H (1.3-7.7) k/uL Lymphocytes # 2.4 (1.0-4.8) k/uL Monocytes # 0.6 (0-1.0) k/uL Eosinophils # 0.2 (0-0.7) k/uL Basophils # 0.1 (0-0.2) k/uL PT 10.8 (10.0-12.5) sec INR 1.0 (<1.2) APTT 23.7 (22.0-30.0) sec Sodium (137-145) mmol/L Potassium (3.5-5.1) mmol/L Chloride (98-107) mmol/L Carbon Dioxide (22-30) mmol/L Anion Gap mmol/L BUN (7-17) mg/dL Creatinine (0.52-1.04) mg/dL Est GFR (CKD-EPI)AfAm (>60 ml/min/1.73 sqM) Est GFR (CKD-EPI)NonAf (>60 ml/min/1.73 sqM) Glucose (74-99) mg/dL Calcium (8.4-10.2) mg/dL Magnesium (1.6-2.3) mg/dL Total Bilirubin (0.2-1.3) mg/dL AST (14-36) U/L ALT (4-34) U/L Alkaline Phosphatase (38-126) U/L Troponin I (0.000-0.034) ng/mL Total Protein (6.3-8.2) g/dL Albumin (3.5-5.0) g/dL Blood Type Blood Type Confirm O Positive Blood Type Recheck Bld Type Recheck Status Antibody Screen Spec Expiration Date 08/12/23 08/12/23 08/12/23 Range/Units 05:32 05:32 05:32 WBC (3.8-10.6) k/uL RBC (3.80-5.40) m/uL Hgb (11.4-16.0) gm/dL Hct (34.0-46.0) % MCV (80.0-100.0) fL MCH (25.0-35.0) pg MCHC (31.0-37.0) g/dL RDW (11.5-15.5) % Plt Count (150-450) k/uL MPV Neutrophils % % Lymphocytes % % Monocytes % % Eosinophils % % Basophils % % Neutrophils # (1.3-7.7) k/uL Lymphocytes # (1.0-4.8) k/uL Monocytes # (0-1.0) k/uL Eosinophils # (0-0.7) k/uL Basophils # (0-0.2) k/uL PT (10.0-12.5) sec INR (<1.2) APTT (22.0-30.0) sec Sodium 136 L (137-145) mmol/L Potassium 4.0 (3.5-5.1) mmol/L Chloride 108 H (98-107) mmol/L Carbon Dioxide 19 L (22-30) mmol/L Anion Gap 9 mmol/L BUN 30 H (7-17) mg/dL Creatinine 1.00 (0.52-1.04) mg/dL Est GFR (CKD-EPI)AfAm 68 (>60 ml/min/1.73 sqM) Est GFR (CKD-EPI)NonAf 59 (>60 ml/min/1.73 sqM) Glucose 138 H (74-99) mg/dL Calcium 9.2 (8.4-10.2) mg/dL Magnesium 1.6 (1.6-2.3) mg/dL Total Bilirubin 0.7 (0.2-1.3) mg/dL AST 18 (14-36) U/L ALT 15 (4-34) U/L Alkaline Phosphatase 131 H (38-126) U/L Troponin I <0.012 (0.000-0.034) ng/mL Total Protein 6.5 (6.3-8.2) g/dL Albumin 3.5 (3.5-5.0) g/dL Blood Type O Positive Blood Type Confirm Blood Type Recheck No Previous Record Bld Type Recheck Status CABO Indicated Antibody Screen NEGATIVE Spec Expiration Date 08/15/20232331 Disposition Clinical Impression: Vaginal bleeding, Lower gastrointestinal hemorrhage Disposition: HOME SELF-CARE Condition: Good Instructions (If sedation given, give patient instructions): Gastrointestinal Bleeding (ED) Is patient prescribed a controlled substance at d/c from ED?: No Referrals: Ailyn Garzon MD [Primary Care Provider] - 1-2 days Time of Disposition: 06:00
[2023-08-12] MEDS: SODIUM CHLORIDE 0.9% 500 ML 500 ML IV STA (05:40)
[2023-08-12 05:42] LABS: Basophils # (A) 0.1 k/uL (0-0.2); Basophils % (A) 1 %; Eosinophils # (A) 0.2 k/uL (0-0.7); Eosinophils % (A) 1 %; HCT 40.3 % (34.0-46.0); HGB 12.7 gm/dL (11.4-16.0); Lymphocytes # (A) 2.4 k/uL (1.0-4.8); Lymphocytes % (A) 14 %; MCHC 31.5 g/dL (31.0-37.0); MCV 98.4 fL (80.0-100.0); Mean Platelet Volume 8.5; Monocytes # (A) 0.6 k/uL (0-1.0); Monocytes % (A) 3 %; Neutrophils # (A) 13.9 k/uL (1.3-7.7); Neutrophils % (A) 80 %; Platelet Count 223 k/uL (150-450); RBC 4.09 m/uL (3.80-5.40); RDW 13.6 % (11.5-15.5); WBC 17.4 k/uL (3.8-10.6)
[2023-08-12 05:50] LABS: ALT 15 U/L (4-34); AST 18 U/L (14-36); African American GFR (CKD) 68 (>60 ml/min/1.73 sqM); Albumin 3.5 g/dL (3.5-5.0); Alkaline Phosphatase 131 U/L (38-126); Anion Gap 9 mmol/L; Blood Urea Nitrogen 30 mg/dL (7-17); Calcium 9.2 mg/dL (8.4-10.2); Carbon Dioxide 19 mmol/L (22-30); Chloride 108 mmol/L (98-107); Glucose 138 mg/dL (74-99); Magnesium 1.6 mg/dL (1.6-2.3); Non-African American GFR(CKD) 59 (>60 ml/min/1.73 sqM); Sodium 136 mmol/L (137-145); Total Bilirubin 0.7 mg/dL (0.2-1.3); Total Protein 6.5 g/dL (6.3-8.2)
[2023-08-12 05:51] LABS: Partial Thromboplastin Time 23.7 sec (22.0-30.0); Prothrombin Time 10.8 sec (10.0-12.5)
[2023-08-12 06:48] VITALS: BP 110/70; PULSE 75; RESP 17; TEMP 98.7
== END 2023-08-12 06:43 | disposition home or self-care (01) ==
LOC: EC 04:56
DX: N93.9 Abnormal uterine and vaginal bleeding, unspecified (principal); F17.200 Nicotine dependence, unspecified, uncomplicated; Z88.5 Allergy status to narcotic agent; Z88.1 Allergy status to other antibiotic agents; Z88.8 Allergy status to other drugs, medicaments and biological substances
CPT/HCPCS: 36415; 80053; 83735; 84484; 85025; 85610; 85730; 86850; 86900; 86901; 99284

== ENCOUNTER → 2023-08-19 | Outpatient (CLI) | payer MEDICARE ==
--- NOTE | 2023-08-19 12:42 | XR ---
EXAMINATION TYPE: XR chest 2V DATE OF EXAM: 08/19/2023 12:25 PM CLINICAL INDICATION:Female, 68 years old with history of D72.829 Leukocytosis; [facility] COMPARISON: Chest radiographs from 05/03/2022 TECHNIQUE: XR chest 2V Frontal and lateral views of the chest. FINDINGS: Lungs/Pleura: There is no evidence of pleural effusion, focal consolidation, or pneumothorax. Pulmonary vascularity: Unremarkable. Heart/mediastinum: Cardiomediastinal silhouette is unremarkable. Musculoskeletal: No acute osseous pathology. IMPRESSION: No acute cardiopulmonary disease/process.
== END | disposition home or self-care (01) ==
LOC: RADXRMAIN 11:54
PROVIDERS: ATTEND Internal Medicine
DX: D72.829 Elevated white blood cell count, unspecified (principal)
CPT/HCPCS: 71046

== ENCOUNTER → 2023-09-12 | Outpatient (CLI) | payer MEDICARE ==
--- NOTE | 2023-09-12 09:20 | XR ---
EXAM TYPE: LUMBAR SPINE X RAY SERIES COMPARISON: 08/01/2014 HISTORY: Pain TECHNIQUE: 4 views are submitted. FINDINGS: Alignment is anatomic. The pedicles are intact. The transverse processes are intact. There is diff use osteopenia. There is multilevel degenerative disc disease. There is slight anterior listhesis L5- S1. Multilevel facet arthropathy. Diffuse osteopenia. Atherosclerotic vascular calcifications noted. Surgical clips in the gallbladder fossa. SI joint arthropathy greater on the left. IMPRESSION: 1. Multilevel mild degenerative disc disease 2. Facet arthropathy lower lumbar spine.
--- NOTE | 2023-09-12 09:22 | XR ---
EXAMINATION TYPE: XR thoracic spine complete DATE OF EXAM: 09/12/2023 COMPARISON: NONE HISTORY: Pain TECHNIQUE: 3 views submitted FINDINGS: Alignment is anatomic. There is no compression deformities. Diffuse osteopenia. There is mild cardio megaly. Multilevel hypertrophic and degenerative changes. Spurring seen along the anterior margin of C4 incidentally noted. IMPRESSION: 1. Diffuse osteopenia. 2. Multilevel mild hypertrophic and degenerative change.
== END | disposition home or self-care (01) ==
LOC: RADXRMAIN 08:40
PROVIDERS: ATTEND Internal Medicine
DX: M51.36 Other intervertebral disc degeneration, lumbar region (principal); M47.816 Spondylosis without myelopathy or radiculopathy, lumbar region; M85.88 Other specified disorders of bone density and structure, other site; M47.814 Spondylosis without myelopathy or radiculopathy, thoracic region
CPT/HCPCS: 72072; 72100

== ENCOUNTER → 2023-09-22 | Outpatient (CLI) | payer MEDICARE ==
--- NOTE | 2023-09-22 10:09 | MM ---
Reason for Exam: Screening (asymptomatic). Last mammogram was performed 1 year(s) and 3 month(s) ago. Patient History: Menarche at age 18. First Full-Term at age 19. Postmenopausal. Risk Values: Liz 5 year model risk: 1.1%. NCI Lifetime model risk: 4.0%. Prior Study Comparison: 04/14/2020 Bilateral Screening Mammogram, [facility]. 06/11/2021 Bilateral Screening Mammogram, [facility]. 06/14/2022 Bilateral MG 3D screening mammo w/cad, [facility]. Tissue Density: The breasts are almost entirely fatty. Findings: Analyzed By CAD. There is no suspicious group of microcalcifications or new suspicious mass in either breast. Overall Assessment: Benign, BI-RAD 2 Management: Screening Mammogram of both breasts in 1 year. . Patient should continue monthly self-breast exams. A clinical breast exam by your physician is recommended on an annual basis. This exam should not preclude additional follow-up of suspicious palpable abnormalities. Note on Liz scores and lifetime risk: 1. A Liz score greater than 3% is considered moderate risk. If this is the case, consider specialist referral to assess eligibility for a risk reducing agent. 2. If overall lifetime risk for the development of breast cancer is 20% or higher, the patient may qualify for future screening with alternating mammogram and breast MRI. Electronically signed and approved by: Justin Lemon M.D. Radiologis
--- NOTE | 2023-09-22 11:40 | BD ---
EXAMINATION TYPE: Axial Bone Density DATE OF EXAM: 09/22/2023 CLINICAL HISTORY: 68 years old Female. ICD-10 CODE: N95.1 POSTMENOPAUSAL,M85.88 DISORDER OF BONE DEN MADI Height: 65.4in Weight: 282lb FRAX RISK QUESTIONS: Secondary Osteoporosis: Current Tobacco Use: yes RISK FACTORS HISTORY OF: MEDICATIONS: Thyroid Medications: Which medication: Synthroid How Lonyears EXAM MEASUREMENTS: Bone mineral densitometry was performed using the [employer] System. Bone mineral density as measured about the Lumbar spine is: ----- L1-L4(G/cm2): 1.206 T Score Values are as follows: ----- L1: -1.2 ----- L2: -0.5 ----- L3: 0.8 ----- L4: 1.3 ----- L1-L4: 0.2 Z Score Values are as follows: ----- L1: -0.8 ----- L2: -0.1 ----- L3: 1.2 ----- L4: 1.7 ----- L1-L4: 0.7 Bone mineral density has: Increased 5.3% since study of: 04-14-20 Bone mineral density about the R hip (g/cm2): 1.007 Bone mineral density about the L hip (g/cm2): 1.060 T Score values are as follows: -----R Neck: -0.3 -----L Neck: -0.4 -----R Total: 0.0 -----L Total: 0.4 Z Score values are as follows: -----R Neck: 0.5 -----L Neck: 0.4 -----R Total: 0.4 -----L Total: 0.8 Bone mineral density has: Decreased -1.6% since study of: 04-14-20 FRAX%s: The graph provided illustrates a 5.9% chance for a major osteoporotic fx and a 0.4% chance fo r the hips probability for fx in 10 years time. IMPRESSION: Normal (Values between +1 and -1 indicate normal bone mass). Consider repeating this study in 5 year s or sooner if there is some new clinical indication. NOTE: T-SCORE=SD OF THE YOUNG ADULT MEAN.
== END | disposition home or self-care (01) ==
LOC: RADMAMWWP 07:54
PROVIDERS: ATTEND Internal Medicine
DX: Z12.31 Encounter for screening mammogram for malignant neoplasm of breast (principal); Z78.0 Asymptomatic menopausal state
CPT/HCPCS: 77063; 77067; 77080

== ENCOUNTER 2024-05-22 20:28 | Observation (INO) | payer MEDICARE ==
--- NOTE | 2024-05-22 20:52 | ED ---
Chest Pain HPI - General Chief Complaint: Chest Pain Stated Complaint: Chest Pain,Jaw Pain Time Seen by Provider: 05/22/24 20:51 Source: patient, RN notes reviewed, old records reviewed Mode of arrival: wheelchair Limitations: no limitations - History of Present Illness Initial Comments: Patient is a 68-year-old female presented to the ER for evaluation of chest discomfort. Patient reports last night she started to have a headache. She states pain soon involved her chest with radiation to her neck and back. She admits to shortness of breath and diaphoresis along with nausea. No vomiting. History of COPD and is a current smoker. No home O2 use or peripheral edema. Patient does admit to mild exertional dyspnea. Patient denies any fevers, coug h, congestion or other complaints at this time. No known cardiac history. - Related Data Home Medications Medication Instructions Recorded Confirmed Diazepam [Valium] 5 mg PO BID 08/12/13 06/23/20 Levothyroxine Sodium [Synthroid] 100 mcg PO QAM 04/17/18 06/23/20 HYDROcodone/APAP 10-325MG [[place] 1 tab PO QID 06/23/20 06/23/20 10-325] carvediloL [Coreg] 3.125 mg PO QAM 06/23/20 06/23/20 lisinopriL 20 mg PO DAILY 06/23/20 06/23/20 Previous Rx's Medication Instructions Recorded Amoxicillin 875 mg PO Q12HR #20 tablet 02/01/21 Sulfamethoxazole/Trimethoprim 1 each PO BID #20 tablet 02/01/21 [Bactrim DS 800-160 mg] Naproxen [EC-Naproxen] 500 mg PO BID #30 tab 05/01/23 Allergies Allergy/AdvReac Type Severity Reaction Status Date / Time cephalexin [From Keflex] Allergy Rash/Hives Verified 05/22/24 20:35 amlodipine [From Norvasc] AdvReac Nausea & Verified 05/22/24 20:35 Vomiting morphine AdvReac Nausea & Verified 05/22/24 20:35 Vomiting Review of Systems ROS Statement: Those systems with pertinent positive or pertinent negative responses have been documented in the HPI. ROS Other: All systems not noted in ROS Statement are negative. EKG Findings - EKG Comments: EKG Findings:: EKG taken at 20: 45 showing a sinus rhythm. No ST segment elevations or depressions. No T wave abnormalities. Ventricular rate 89, NE interval 144, QRS duration 70, QT/QTc 341/387. 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 glaucoma History of Any Multi-Drug Resistant Organisms: None Reported Past Surgical History: Bladder Surgery, Section Additional Past Surgical History / Comment(s): bunionectomy, x3, cancerous lesion removed from labia 2010. Past Anesthesia/Blood Transfusion Reactions: No Reported Reaction Past Psychological History: Depression Smoking Status: Current every day smoker Past Alcohol Use History: None Reported Past Drug Use History: None Reported - Past Family History Mother Additional Family Medical History / Comment(s): pt. reports mother had an aortic valve replacement General Exam - General Exam Comments Initial Comments: Visual Physical Exam Vital signs reviewed General: Well-appearing, nontoxic, no acute distress. Head: Normocephalic, atraumatic Eyes: PERRLA, EOMI ENT: Airway patent Chest: Nonlabored breathing Skin: No visual rash, normal skin tone Neuro: Alert and oriented 3 Musculoskeletal: No gross abnormalities Limitations: no limitations General appearance: alert, in no apparent distress Respiratory exam: Present: normal lung sounds bilaterally. Absent: respiratory distress, wheezes, rales, rhonchi, stridor Cardiovascular Exam: Present: regular rate, normal rhythm, normal heart sounds. Absent: systolic murmur, diastolic murmur, rubs, gallop, clicks Extremities exam: Present: normal inspection, full ROM, normal capillary refill, other. Absent: tenderness, pedal edema, joint swelling, calf tenderness Neurological exam: Present: alert, oriented X3, CN II-XII intact Skin exam: Present: warm, dry, intact, normal color. Absent: rash Course Vital Signs 05/22/24 05/22/24 05/22/24 20:33 23:02 23:09 Temperature 98.1 F Pulse Rate 102 H 105 H Respiratory 18 20 Rate Blood Pressure 117/61 146/114 150/85 O2 Sat by Pulse 95 94 L Oximetry - Reevaluation(s) Reevaluation #1: 05/22/24 23:14 HEART score 5. 05/22/24 23:[address] Garzon who accepts admission. Chest Pain MDM - MDM I performed the quick note portion of this chart. Electronically signed by Ramon Kirkland PA-C Was pt. sent in by a medical professional or institution (KAY Goldsmith, RESIDENTIAL SALES CONSULTANT, urgent care, hospital, or snf...) When possible be specific @ -No Did you speak to anyone other than the patient for history (EMS, parent, family, police, friend...)? What history was obtained from this source @ -No Did you review nursing and triage notes (agree or disagree)? Why? @ -I reviewed and agree with nursing and triage notes Were old charts reviewed (outside hosp., previous admission, EMS record, old EKG, old radiological studies, urgent care reports/EKG's, snf records)? Report findings @ -No old charts were reviewed Differential Diagnosis (chest pain, altered mental status, abdominal pain women, abdominal pain men, vaginal bleeding, weakness, fever, dyspnea, syncope, headache, dizziness, GI bleed, back pain, seizure, CVA, palpatations, mental health, musculoskeletal)? @ -Differential Chest Pain: Stable Angina, Unstable Angina, STEMI, NSTEMI Aortic Dissection, Pneumothorax, Musculoskeletal, Esophageal Spasm GERD, Cholecystitis, Pancreatitis, Zoster, this is not meant to be an all-inclusive list. EKG interpreted by me (3pts min.). @ -As above X-rays interpreted by me (1pt min.). @ -CXR interpreted by me showing pulmonary vascular congestion. CT interpreted by me (1pt min.). @ -None done U/S interpreted by me (1pt. min.). @ -None done What testing was considered but not performed or refused? (CT, X-rays, U/S, labs)? Why? @ -None What meds were considered but not given or refused? Why? @ -None Did you discuss the management of the patient with other professionals (professionals i.e. KAY Goldsmith, RESIDENTIAL SALES CONSULTANT, lab, RT, psych nurse, social welfare administrator, banquet supervisor, teacher, bank operations officer, cyanide case hardener)? Give summary @ -Case discussed with Dr. Garzon who accepts admission. Was smoking cessation discussed for >3mins.? @ -I discussed smoking cessation for greater than 3 minutes. The risk of smoking were discussed with the patient including but not limited to risks of cancer, stroke, coronary artery disease and COPD. Also discussed with patient were multiple methods of quitting smoking. Lastly we discussed the financial cost of smoking. Was critical care preformed (if so, how long)? @ -No Were there social determinants of health that impacted care today? How? (Homelessness, low income, unemployed, alcoholism, drug addiction, transportation, low edu. Level, literacy, decrease access to med. care, [place] [facility], rehab)? @ -No Was there de-escalation of care discussed even if they declined (Discuss DNR or withdrawal of care, Hospice)? DNR status @ -No What co-morbidities impacted this encounter? (DM, HTN, Smoking, COPD, CAD, Cancer, CVA, ARF, Chemo, Hep., AIDS, mental health diagnosis, sleep apnea, morbid obesity)? @ -Obese, thyroid disorder, smoker, HTN Was patient admitted / discharged? Hospital course, mention meds given and route, prescriptions, significant lab abnormalities, going to OR and other pertinent info. @ -Admitted. 68 year old female presenting to the ER for evaluation of chest pain. Upon rooming history and physical exam completed. Vitals with acceptable limits. Patient in no signs of acute distress. Initial troponin undetectable. EKG showing sinus rhythm. CXR concerning of pulmonary vascular congestion and BNP 879. Influenza A positive. Nitro paste for chest discomfort in ER. Fluids held given concern of CHF based off CXR. HEART score 5. Given patient's comorbidities and chief complaint, admission was considered and discussed with Dr. Garzon who accepts admission. Cardiology on consult. Patient agreeable. Patient admitted in stable condition. Case discussed with ED attending, . Undiagnosed new problem with uncertain prognosis? @ -No Drug Therapy requiring intensive monitoring for toxicity (Heparin, Nitro, Insulin, Cardizem)? @ -No Were any procedures done? @ -No Diagnosis/symptom? @ -Chest pain/influenza A/Acute viral sinusitis Acute, or Chronic, or Acute on Chronic? @ -Acute Uncomplicated (without systemic symptoms) or Complicated (systemic symptoms)? @ -Complicated Side effects of treatment? @ -No Exacerbation, Progression, or Severe Exacerbation? @ -No Poses a threat to life or bodily function? How? (Chest pain, [place], [place], pneumonia, PE, COPD, DKA, ARF, appy, cholecystitis, CVA, Diverticulitis, Homicidal, Suicidal, threat to staff... and all critical care pts) @ -Yes cannot rule out ACS Disposition Clinical Impression: Chest pain, Influenza A, Acute viral sinusitis Disposition: ADMITTED IP TO THIS HOSP Condition: Stable Referrals: Ailyn Garzon MD [Primary Care Provider] - 1-2 days Time of Disposition: 23:41
--- NOTE | 2024-05-22 21:22 | XR ---
EXAMINATION TYPE: XR chest 2V DATE OF EXAM: 05/22/2024 9:07 PM COMPARISON: Chest radiographs from 08/19/2023 CLINICAL INDICATION: Female, 68 years old with history of Chest Pain; TECHNIQUE: XR chest 2V Frontal and lateral views of the chest. FINDINGS: Lungs/Pleura: There is no evidence of pleural effusion, focal consolidation, or pneumothorax. Pulmonary vascularity: Pulmonary vascular congestion. Heart/mediastinum: Cardiomediastinal silhouette is unremarkable. Musculoskeletal: No acute osseous pathology. IMPRESSION: Mild pulmonary edema. [facility] Erika Hyatt, , 05/22/2024 9:20 PM
[2024-05-22 21:36] LABS: Basophils % (A) 0 %; Eosinophils # (A) 0.1 k/uL (0-0.7); Eosinophils % (A) 1 %; HCT 43.8 % (34.0-46.0); HGB 14.4 gm/dL (11.4-16.0); Lymphocytes # (A) 1.2 k/uL (1.0-4.8); Lymphocytes % (A) 17 %; MCH 30.9 pg (25.0-35.0); MCHC 32.9 g/dL (31.0-37.0); MCV 93.8 fL (80.0-100.0); Mean Platelet Volume 8.6; Monocytes # (A) 0.4 k/uL (0-1.0); Monocytes % (A) 6 %; Neutrophils # (A) 5.1 k/uL (1.3-7.7); Neutrophils % (A) 73 %; Platelet Count 174 k/uL (150-450); RBC 4.67 m/uL (3.80-5.40); RDW 12.9 % (11.5-15.5)
[2024-05-22 21:39] LABS: INR 1.1 (<1.2); Partial Thromboplastin Time 25.3 sec (22.0-30.0); Prothrombin Time 11.5 sec (10.0-12.5)
[2024-05-22 21:46] LABS: ALT 14 U/L (4-34); AST 26 U/L (14-36); African American GFR (CKD) 67 (>60 ml/min/1.73 sqM); Albumin 4.1 g/dL (3.5-5.0); Alkaline Phosphatase 111 U/L (38-126); Anion Gap 12 mmol/L; Blood Urea Nitrogen 13 mg/dL (7-17); Calcium 9.2 mg/dL (8.4-10.2); Carbon Dioxide 28 mmol/L (22-30); Chloride 94 mmol/L (98-107); Glucose 139 mg/dL (74-99); Magnesium 1.7 mg/dL (1.6-2.3); Non-African American GFR(CKD) 58 (>60 ml/min/1.73 sqM); Potassium 3.9 mmol/L (3.5-5.1); Sodium 134 mmol/L (137-145); Total Bilirubin 0.5 mg/dL (0.2-1.3); Total Protein 7.1 g/dL (6.3-8.2)
[2024-05-22] MEDS: NITROGLYCERIN OINT 1 INCH/GM PACKET TOPICAL STA (23:32)
[2024-05-22] MEDS ORDERED: NALOXONE 0.4 MG/ML 1 ML VIAL IV PRN (23:40)
[2024-05-22] MEDS ORDERED: ONDANSETRON 4 MG/2 ML VIAL IVP PRN (23:40)
[2024-05-23 00:24] LABS: Influenza A Detected (Not Detectd); Influenza B Not Detected (Not Detectd); RSV Not Detected (Not Detectd)
[2024-05-23] MEDS ORDERED: IBUPROFEN 600 MG TAB PO PRN (02:42)
[2024-05-23] MEDS: ACETAMINOPHEN TAB 325 MG TAB PO PRN (04:04)
[2024-05-23] MEDS: SODIUM CHLORIDE 0.9% 1,000 ML IV ONE (08:56)
[2024-05-23] MEDS: FUROSEMIDE 10 MG/ML 2 ML VIAL IV ONE (10:23)
--- NOTE | 2024-05-23 13:10 | P.CRDCN ---
History of Present Illness Consult date: 05/23/24 Consult reason: chest pain History of present illness: This is a 68-year-old female patient previously seen in the office by Dr. Ann in 2013, currently does not follow with a front elevator operator. She has a past medical history of hypertension, hypothyroidism. We have been asked to evaluate the patient for chest pain. Patient states that she has been having episodes of sweats that are very bad that happen for about 5 to 6 minutes and then she has some right face pain that goes to her back into her jaw. She then has a little bit of mild chest pain but the pain she experiences in her back is worse. She has some shortness of breath with the symptoms. They do not occur with exertion. They have been on and off for the past 2 days. She denies any lower extremity edema no weight gain. She denies history of diabetes. She does have a cough. No fever or chills. Patient has been diagnosed with influenza A. Blood pressure 94/58, heart rate 78, pulse ox 98% on room air. Blood pressure readings have been labile down to 76/47 and as high as 146/114. She is status post Nitro-Bid and 1 L of IV fluids. Patient is seen today in the emergency center waiting for bed on the observation unit. -EKG: Sinus rhythm with no acute ST-T wave changes. -Chest x-ray: Mild pulmonary edema -Laboratory studies: CBC within normal limits. Sodium 134, potassium 3.9, creatinine 1.02. Troponin negative x 2. proBNP 879. Influenza A detected. -Home cardiac medications: Coreg 3.125 mg daily, valsartan hydrochlorothiazide 160-25 mg daily, also on levothyroxine. -Echocardiogram performed 11/2013 revealed EF 65 to 70%, trace mitral regurgitation, mild tricuspid regurgitation and mild pulmonary hypertension. Stress echocardiogram performed in 2013 was a normal EF and normal study. Review Of Systems: At the time of my exam: CONSTITUTIONAL: Denies fever or chills. HEENT: Denies blurred vision, vision changes, or eye pain. Denies hemoptysis CARDIOVASCULAR: Denies chest pain. Denies orthopnea. Denies PND. Denies palpitations RESPIRATORY: Denies shortness of breath. GASTROINTESTINAL: Denies abdominal pain. Denies nausea or vomiting. HEMATOLOGIC: Denies bleeding disorders. GENITOURINARY: Denies any blood in urine. SKIN: Denies puritis. Denies rash. Physical examination: Gen: This is a 68-year-old female patient in no acute distress VS: reviewed HEENT: Head is atraumatic, normocephalic. Pupils equal, round. Sclerae is anicteric. NECK: Supple. No JVD. LUNGS: Bilateral expiratory wheeze. No intercostal retractions. HEART: Regular rate and rhythm. No murmur. ABDOMEN: Soft No tenderness. EXTREMITIES: No pedal edema. No calf tenderness. NEUROLOGICAL: Patient is awake, alert and oriented x3. Assessment: Influenza A Atypical chest pain, acute coronary syndrome ruled out Chest pain most likely muscular skeletal related to influenza A and coughing Hypertension, currently hypotensive Hypothyroidism Plan: Hold patient's blood pressure medications Give 1 dose of IV Lasix 20 mg now Obtain lipid panel Obtain 2-D echocardiogram and Doppler study to assess cardiac structure and function At the time of discharge, patient will follow-up with Dr. Anderson in 2 weeks Further recommendations to follow based upon clinical course. Most likely patient will be recommended for outpatient stress test once her respiratory symptoms have resolved. Thank you kindly for this consultation. Nurse practitioner note has been reviewed, I agree with documented findings and plan of care. Patient was seen and examined. 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 glaucoma History of Any Multi-Drug Resistant Organisms: None Reported Past Surgical History: Bladder Surgery, Section Additional Past Surgical History / Comment(s): bunionectomy, x3, cancerous lesion removed from labia 2010. Past Anesthesia/Blood Transfusion Reactions: No Reported Reaction Past Psychological History: Depression Smoking Status: Current every day smoker Past Alcohol Use History: None Reported Past Drug Use History: None Reported - Past Family History Mother Additional Family Medical History / Comment(s): pt. reports mother had an aortic valve replacement Medications and Allergies Home Medications Medication Instructions Recorded Confirmed Type Diazepam [Valium] 5 mg PO BID PRN 08/12/13 05/23/24 History HYDROcodone/APAP 10-325MG [[place] 1 tab PO TID 06/23/20 05/23/24 History 10-325] carvediloL [Coreg] 3.125 mg PO DAILY 06/23/20 05/23/24 History Levothyroxine Sodium [Synthroid] 112 mcg PO DAILY 05/23/24 05/23/24 History Valsartan/Hydrochlorothiazide 1 tab PO DAILY 05/23/24 05/23/24 History [Valsartan-Hctz 160-25 mg Tab] Allergies Allergy/AdvReac Type Severity Reaction Status Date / Time cephalexin [From [facility]] Allergy Rash/Hives Verified 05/23/24 07:50 amlodipine [From [facility]] AdvReac Nausea & Verified 05/23/24 07:50 Vomiting morphine AdvReac Nausea & Verified 05/23/24 07:50 Vomiting Physical Exam Vitals: Vital Signs Temp Pulse Resp BP Pulse Ox 05/23/24 08:56 87 18 103/70 05/23/24 08:42 87 18 76/47 98 05/23/24 04:00 87 18 96/58 05/22/24 23:09 150/85 05/22/24 23:02 105 H 20 146/114 94 L 05/22/24 20:33 98.1 F 102 H 18 117/61 95 Intake and Output 05/22/24 05/23/24 05/23/24 22:59 06:59 14:59 Other: Weight 127.006 kg Results 05/22/24 20:58 05/22/24 20:58 Cardiac Enzymes 05/22/24 05/22/24 05/22/24 Range/Units 20:58 20:58 23:35 AST 26 (14-36) U/L Troponin I <0.012 <0.012 (0.000-0.034) ng/mL Coagulation 05/22/24 Range/Units 20:58 PT 11.5 (10.0-12.5) sec APTT 25.3 (22.0-30.0) sec CBC 05/22/24 Range/Units 20:58 WBC 7.0 (3.8-10.6) k/uL RBC 4.67 (3.80-5.40) m/uL Hgb 14.4 (11.4-16.0) gm/dL Hct 43.8 (34.0-46.0) % Plt Count 174 (150-450) k/uL Comprehensive Metabolic Panel 05/22/24 Range/Units 20:58 Sodium 134 L (137-145) mmol/L Potassium 3.9 (3.5-5.1) mmol/L Chloride 94 L (98-107) mmol/L Carbon Dioxide 28 (22-30) mmol/L BUN 13 (7-17) mg/dL Creatinine 1.02 (0.52-1.04) mg/dL Glucose 139 H (74-99) mg/dL Calcium 9.2 (8.4-10.2) mg/dL AST 26 (14-36) U/L ALT 14 (4-34) U/L Alkaline Phosphatase 111 (38-126) U/L Total Protein 7.1 (6.3-8.2) g/dL Albumin 4.1 (3.5-5.0) g/dL Current Medications Generic Name Dose Route Start Last Admin Trade Name Freq PRN Reason Stop Dose Admin Acetaminophen 650 mg 05/22/24 23:40 05/23/24 04:04 Acetaminophen Tab 325 Mg Tab PO 650 mg Q6HR PRN Administration Mild Pain or Fever > 100.5 Sodium Chloride 1,000 mls @ 999 mls/hr 05/23/24 08:55 05/23/24 08:56 Saline 0.9% IV 05/23/24 09:55 999 mls/hr .Q1H1M ONE Administration Ibuprofen 600 mg 05/23/24 02:42 Ibuprofen 600 Mg Tab PO Q6HR PRN Fever Naloxone HCl 0.2 mg 05/22/24 23:40 Naloxone 0.4 Mg/Ml 1 Ml Vial IV Q2M PRN Opioid Reversal Ondansetron HCl 4 mg 05/22/24 23:40 Ondansetron 4 Mg/2 Ml Vial IVP Q8HR PRN Nausea And Vomiting Intake and Output 05/22/24 05/23/24 05/23/24 22:59 06:59 14:59 Other: Weight 127.006 kg 05/22/24 20:58 05/22/24 20:58
[2024-05-23] MEDS ORDERED: diazePAM 5 MG TAB PO PRN (17:10)
--- NOTE | 2024-05-23 17:35 | P.HPIM ---
History of Present Illness H&P Date: 05/23/24 Kelly Coy, is a 68-year-old female who presented to [facility] emergency room with a chief complaint of worsening shortness of breath and chest pain She was evaluated in the emergency room vital examination on presentation revealed a temperature of 98.1 pulse 102 respiration 18 blood pressure 117/61 but soon declined to 76/47 pulse ox 94% on room air Laboratory data revealed a white blood count of 7.0 hemoglobin 14.4 platelet count 174 sodium 134 potassium 3.9 chloride 94 CO2 28 BUN 13 creatinine 1.02 influenza A PCR was positive troponin 0.012 BNP 879 Testing in the emergency room revealed chest x-ray done in the emergency room revealed mild pulmonary edema, EKG revealed sinus rhythm with left atrial enlargement Patient was admitted to medical floor for further evaluation and treatment 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 glaucoma History of Any Multi-Drug Resistant Organisms: None Reported Past Surgical History: Bladder Surgery, Section Additional Past Surgical History / Comment(s): bunionectomy, x3, cancerous lesion removed from labia 2010. Past Anesthesia/Blood Transfusion Reactions: No Reported Reaction Past Psychological History: Depression Smoking Status: Current every day smoker Past Alcohol Use History: None Reported Past Drug Use History: None Reported - Past Family History Mother Additional Family Medical History / Comment(s): pt. reports mother had an aortic valve replacement Medications and Allergies Home Medications Medication Instructions Recorded Confirmed Type Diazepam [Valium] 5 mg PO BID PRN 08/12/13 05/23/24 History HYDROcodone/APAP 10-325MG [[place] 1 tab PO TID 06/23/20 05/23/24 History 10-325] carvediloL [Coreg] 3.125 mg PO DAILY 06/23/20 05/23/24 History Levothyroxine Sodium [Synthroid] 112 mcg PO DAILY 05/23/24 05/23/24 History Valsartan/Hydrochlorothiazide 1 tab PO DAILY 05/23/24 05/23/24 History [Valsartan-Hctz 160-25 mg Tab] Allergies Allergy/AdvReac Type Severity Reaction Status Date / Time cephalexin [From Keflex] Allergy Rash/Hives Verified 05/23/24 07:50 amlodipine [From Norvasc] AdvReac Nausea & Verified 05/23/24 07:50 Vomiting morphine AdvReac Nausea & Verified 05/23/24 07:50 Vomiting Physical Exam Vitals: Vital Signs Temp Pulse Resp BP Pulse Ox 05/23/24 10:23 78 18 94/58 98 05/23/24 08:56 87 18 103/70 05/23/24 08:42 87 18 76/47 98 05/23/24 04:00 87 18 96/58 05/22/24 23:09 150/85 05/22/24 23:02 105 H 20 146/114 94 L 05/22/24 20:33 98.1 F 102 H 18 117/61 95 Intake and Output 05/22/24 05/23/24 05/23/24 22:59 06:59 14:59 Other: Weight 127.006 kg In general patient is alert and oriented x 3 in no distress HEENT head normocephalic and atraumatic Neck is supple no JVD no goiter no lymphadenopathy no carotid bruit Chest examination is clear to auscultation no crackles no wheezing Cardiac exam reveals regular heart sounds S1 and S2 no gallops no murmurs Abdomen is soft nontender no organomegaly with normal bowel sounds Extremity exam reveals no edema no cyanosis or clubbing Neurological examination reveals no gross focal deficits Results CBC & Chem 7: 05/22/24 20:58 05/22/24 20:58 Labs: Abnormal Lab Results - Last 24 Hours (Table) 05/22/24 05/22/24 Range/Units 20:58 23:10 Sodium 134 L (137-145) mmol/L Chloride 94 L (98-107) mmol/L Glucose 139 H (74-99) mg/dL Influenza Type A (PCR) Detected A (Not Detectd) Assessment and Plan Plan: Episodes of chest pain and shortness of breath Positive influenza A Hypotension on presentation Underlying history of hypertension Underlying history of hyperlipidemia Underlying history of morbid obesity At this time patient was seen and examined He was given 1 L IV normal saline bolus due to hypotension Serial EKG and cardiac enzymes ordered cardiology consultation requested For influenza A patient was started on Tamiflu Echocardiogram ordered Will monitor closely
[2024-05-23] MEDS: OSELTAMIVIR 75 MG CAP PO SCH (21:31)
[2024-05-23] MEDS: HYDROcodone/APAP 10-325MG 1 EACH TAB PO SCH (21:31)
[2024-05-24] MEDS: LEVOTHYROXINE 112 MCG TAB PO SCH (05:52)
[2024-05-24] MEDS: ENOXAPARIN 40 MG/0.4 ML SYRINGE SQ SCH (09:01)
[2024-05-24 09:34] LABS: Chol/HDL Ratio 3.95 Ratio; LDL Cholesterol,Calculated 94.1 mg/dL (0.0-131.0)
[2024-05-24] MEDS: FUROSEMIDE 10 MG/ML 2 ML VIAL IV STA (09:45)
--- NOTE | 2024-05-24 10:21 | P.PN ---
Subjective Progress Note Date: 05/24/24 Kelly Coy, is a 68-year-old female who presented to [facility] emergency room with a chief complaint of worsening shortness of breath and chest pain She was evaluated in the emergency room vital examination on presentation revealed a temperature of 98.1 pulse 102 respiration 18 blood pressure 117/61 but soon declined to 76/47 pulse ox 94% on room air Laboratory data revealed a white blood count of 7.0 hemoglobin 14.4 platelet count 174 sodium 134 potassium 3.9 chloride 94 CO2 28 BUN 13 creatinine 1.02 influenza A PCR was positive troponin 0.012 BNP 879 Testing in the emergency room revealed chest x-ray done in the emergency room revealed mild pulmonary edema, EKG revealed sinus rhythm with left atrial enlargement Patient was admitted to medical floor for further evaluation and treatment On 05/24/2024 patient is alert and oriented x 3. Patient jose on Tamiflu. 2D echo has been ordered awaiting results. Cardiology services following. Patient feels improved. Patient denies chest pain or shortness of breath. Patient denies nausea vomiting or diarrhea. Patient denies any urinary burning or frequency. Current vital signs temp 98.6, heart rate 76, respiratory rate 16, blood pressure 113/57 with a pulse ox of 95% on room air Objective - Vital Signs Vital signs: Vital Signs Temp 98.7 F 05/24/24 07:00 Pulse 77 05/24/24 09:45 Resp 18 05/24/24 07:00 BP 134/64 05/24/24 09:45 Pulse Ox 92 L 05/24/24 07:00 FiO2 Intake & Output 05/23/24 05/24/24 05/24/24 18:59 06:59 18:59 Other: Voiding Method Toilet Toilet # Voids 2 - Exam In general patient is alert and oriented x 3 in no distress HEENT head normocephalic and atraumatic Neck is supple no JVD no goiter no lymphadenopathy no carotid bruit Chest examination is clear to auscultation no crackles no wheezing Cardiac exam reveals regular heart sounds S1 and S2 no gallops no murmurs Abdomen is soft nontender no organomegaly with normal bowel sounds Extremity exam reveals no edema no cyanosis or clubbing Neurological examination reveals no gross focal deficits - Labs CBC & Chem 7: 05/22/24 20:58 05/22/24 20:58 Assessment and Plan Plan: Episodes of chest pain and shortness of breath Positive influenza A Hypotension on presentation Underlying history of hypertension Underlying history of hyperlipidemia Underlying history of morbid obesity At this time patient was seen and examined He was given 1 L IV normal saline bolus due to hypotension Serial EKG and cardiac enzymes ordered cardiology consultation requested For influenza A patient was started on Tamiflu Echocardiogram ordered Will monitor closely
[2024-05-24 10:29] LABS: Basophils # (A) 0.1 k/uL (0-0.2); Basophils % (A) 1 %; Eosinophils # (A) 0.3 k/uL (0-0.7); Eosinophils % (A) 3 %; HCT 43.5 % (34.0-46.0); Lymphocytes # (A) 2.1 k/uL (1.0-4.8); Lymphocytes % (A) 28 %; MCH 30.9 pg (25.0-35.0); MCHC 32.3 g/dL (31.0-37.0); MCV 95.8 fL (80.0-100.0); Mean Platelet Volume 8.6; Monocytes # (A) 0.5 k/uL (0-1.0); Monocytes % (A) 6 %; Neutrophils # (A) 4.5 k/uL (1.3-7.7); Neutrophils % (A) 59 %; Platelet Count 179 k/uL (150-450); RBC 4.54 m/uL (3.80-5.40); RDW 12.5 % (11.5-15.5); WBC 7.6 k/uL (3.8-10.6)
--- NOTE | 2024-05-24 10:32 | CA ---
Transthoracic Echo Report Name: Kelly Coy Age: 68 Gender: F : 1955 Exam Date: 05/24/2024 08:31 Exam Location: [facility] Ht (in): 68 Wt (lb): 280 Ordering Physician: Vivian George Attending/Referring Phys: [id number], Ariel [employer] Recruiter Ketty Marie, KIKI Procedure CPT: Indications: Chest Pain Cardiac Hx: Technical Quality: Fair Contrast 1: Definity Total Dose (mL): 2 Contrast 2: Total Dose (mL): MEASUREMENTS (Male / Female) Normal Values 2D ECHO LV Diastolic Diameter PLAX 3.7 cm 4.2 - 5.9 / 3.9 - 5.3 cm LV Systolic Diameter PLAX 1.5 cm IVS Diastolic Thickness 1.2 cm 0.6 - 1.0 / 0.6 - 0.9 cm LVPW Diastolic Thickness 1.3 cm 0.6 - 1.0 / 0.6 - 0.9 cm LV Relative Wall Thickness 0.7 RV Internal Dim ED PLAX 2.4 cm LVOT Diameter 2.0 cm LA Systolic Diameter LX 4.1 cm 3.0 - 4.0 / 2.7 - 3.8 cm LA Volume 87.1 cm??? 18 - 58 / 22 - 52 cm??? LA Volume Index 34.4 cm???/m??? 16 - 28 cm???/m??? M-MODE Aortic Root Diameter MM 3.5 cm LA Systolic Diameter MM 4.2 cm LA Ao Ratio MM 1.2 AV Cusp Separation MM 2.1 cm DOPPLER AV Peak Velocity 164.8 cm/s AV Peak Gradient 10.9 mmHg AV Mean Velocity 114.2 cm/s AV Mean Gradient 5.9 mmHg AV Velocity Time Integral 37.8 cm LVOT Peak Velocity 150.6 cm/s LVOT Peak Gradient 9.1 mmHg LVOT Velocity Time Integral 34.3 cm LVOT Stroke Volume 110.2 cm??? LVOT Stroke Volume Index 46.7 ml/m??? LVOT Cardiac Index 3222.3 cm???/min???m??? AV Area Cont Eq vti 2.9 cm??? AV Area Cont Eq pk 2.9 cm??? MV Peak Velocity 126.1 cm/s MV Peak Gradient 6.4 mmHg MV Mean Velocity 70.3 cm/s MV Mean Gradient 2.3 mmHg MV Velocity Time Integral 38.2 cm MV Area PHT 2.2 cm??? Mitral E Point Velocity 91.1 cm/s Mitral A Point Velocity 126.7 cm/s Mitral E to A Ratio 0.7 MV Deceleration Time 339.2 ms TR Peak Velocity 249.6 cm/s TR Peak Gradient 24.9 mmHg FINDINGS Left Ventricle Left ventricular ejection fraction is estimated at 55-60 %. Mildly increased septal wall thickness. Moderately increased posterior wall thickness. Normal left ventricular systolic function with no obvious regional wall motion abnormalities. Left ventricular cavity size normal. Right Ventricle Normal right ventricular size and function. Right ventricular systolic pressure within normal limits. Right Atrium Moderate right atrial dilatation. Left Atrium Mildly increased left atrial diameter. Moderately increased left atrial volume. Mildly increased left atrial area. Mitral Valve Mitral valve thickened. Moderate mitral annular calcification. Trace mitral regurgitation. Aortic Valve Trileaflet aortic valve. Diffuse thickening (sclerosis) of the aortic valve cusps without reduced excursion. Trace aortic regurgitation. Tricuspid Valve Tricuspid valve not well visualized. Trace to mild tricuspid regurgitation. No tricuspid stenosis. Pulmonic Valve Structurally normal pulmonic valve. Trace pulmonic regurgitation. No pulmonic stenosis. Pericardium No pericardial or pleural effusion. Aorta Normal size aortic root and proximal ascending aorta. CONCLUSIONS Normal biventricular systolic function. Mild LVH Aortic sclerosis with no stenosis with mild insufficiency Mitral annular calcifications with mild MR No pericardial effusion Previewed by: Dr. Luis Anderson MD (Electronically Signed) Final Date: 24 May 2024 10:31
[2024-05-24 11:09] LABS: ALT 15 U/L (4-34); AST 25 U/L (14-36); African American GFR (CKD) 50 (>60 ml/min/1.73 sqM); Albumin 3.6 g/dL (3.5-5.0); Albumin/Globulin Ratio 1.2; Alkaline Phosphatase 99 U/L (38-126); Anion Gap 8 mmol/L; Blood Urea Nitrogen 31 mg/dL (7-17); Calcium 8.7 mg/dL (8.4-10.2); Carbon Dioxide 30 mmol/L (22-30); Chloride 98 mmol/L (98-107); Glucose 131 mg/dL (74-99); Non-African American GFR(CKD) 43 (>60 ml/min/1.73 sqM); Sodium 136 mmol/L (137-145); Total Bilirubin 0.5 mg/dL (0.2-1.3); Total Protein 6.6 g/dL (6.3-8.2)
--- NOTE | 2024-05-24 12:32 | P.PN ---
Subjective Progress Note Date: 05/24/24 Consult reason: chest pain History of present illness: This is a 68-year-old female patient previously seen in the office by Dr. Ann in 2013, currently does not follow with a [facility] consultant. She has a past medical history of hypertension, hypothyroidism. We have been asked to evaluate the patient for chest pain. Patient states that she has been having episodes of sweats that are very bad that happen for about 5 to 6 minutes and then she has some right face pain that goes to her back into her jaw. She then has a little bit of mild chest pain but the pain she experiences in her back is worse. She has some shortness of breath with the symptoms. They do not occur with exertion. They have been on and off for the past 2 days. She denies any lower extremity edema no weight gain. She denies history of diabetes. She does have a cough. No fever or chills. Patient has been diagnosed with influenza A. Blood pressure 94/58, heart rate 78, pulse ox 98% on room air. Blood pressure readings have been labile down to 76/47 and as high as 146/114. She is status post Nitro-Bid and 1 L of IV fluids. Patient is seen today in the emergency center waiting for bed on the observation unit. -EKG: Sinus rhythm with no acute ST-T wave changes. -Chest x-ray: Mild pulmonary edema -Laboratory studies: CBC within normal limits. Sodium 134, potassium 3.9, creatinine 1.02. Troponin negative x 2. proBNP 879. Influenza A detected. -Home cardiac medications: Coreg 3.125 mg daily, valsartan hydrochlorothiazide 160-25 mg daily, also on levothyroxine. -Echocardiogram performed 11/2013 revealed EF 65 to 70%, trace mitral regurgitation, mild tricuspid regurgitation and mild pulmonary hypertension. Stress echocardiogram performed in 2013 was a normal EF and normal study. 05/24 Patient is seen and examined on the observation unit. Patient states that she is feeling a lot better this morning. She denies having any chest pain and no pain in her jaw. Last night she did experience some pain in her back. She continues to have some wheezing this morning and 1 dose of IV Lasix will be ordered to see if this will help. Blood pressure 134/64, heart rate 77, pulse ox 92% on room air. Repeat blood work reveals normal CBC. Sodium 136, pot assium 4, BUN 31 and creatinine 1.3. Triglycerides 127, cholesterol 160, LDL 94, HDL 40. Echocardiogram reveals EF 55 to 60%, mild LVH. Aortic sclerosis with no stenosis and mild insufficiency. Mitral annular calcification with mild MR. No pericardial effusion. Physical examination: Gen: This is a 68-year-old female patient in no acute distress VS: reviewed HEENT: Head is atraumatic, normocephalic. Pupils equal, round. Sclerae is anicteric. NECK: Supple. No JVD. LUNGS: Bilateral expiratory wheeze. No intercostal retractions. HEART: Regular rate and rhythm. No murmur. ABDOMEN: Soft No tenderness. EXTREMITIES: No pedal edema. No calf tenderness. NEUROLOGICAL: Patient is awake, alert and oriented x3. Assessment: Influenza A Atypical chest pain, acute coronary syndrome ruled out Chest pain most likely muscular skeletal related to influenza A and coughing Hypertension, currently hypotensive Hypothyroidism Plan: Hold patient's blood pressure medications. Gradually resume as patient's blood pressure recovers. Give 1 dose of IV Lasix 20 mg now At the time of discharge, patient will follow-up with Dr. Anderson in 2 weeks Plan for outpatient stress test once her respiratory symptoms have resolved. Nurse practitioner note has been reviewed, I agree with documented findings and plan of care. Patient was seen and examined. Objective - Vital Signs Vital signs: Vital Signs Temp 98.7 F 05/24/24 07:00 Pulse 72 05/24/24 07:00 Resp 18 05/24/24 07:00 BP 137/66 05/24/24 07:00 Pulse Ox 92 L 05/24/24 07:00 FiO2 Intake & Output 05/23/24 05/24/24 05/24/24 18:59 06:59 18:59 Other: Voiding Method Toilet # Voids 2 - Labs CBC & Chem 7: 05/24/24 10:19 05/24/24 10:19
[2024-05-24] MEDS: DOCUSATE 100 MG CAP PO SCH (20:02)
[2024-05-24] MEDS: OSELTAMIVIR 30 MG CAP PO SCH (20:04)
[2024-05-25 07:55] VITALS: BP 153/75; PULSE 73; RESP 16; TEMP 97.9
--- NOTE | 2024-05-25 12:34 | P.PN ---
Subjective Progress Note Date: 05/25/24 Consult reason: chest pain History of present illness: This is a 68-year-old female patient previously seen in the office by Dr. Ann in 2013, currently does not follow with a behavioral health clinician. She has a past medical history of hypertension, hypothyroidism. We have been asked to evaluate the patient for chest pain. Patient states that she has been having episodes of sweats that are very bad that happen for about 5 to 6 minutes and then she has some right face pain that goes to her back into her jaw. She then has a little bit of mild chest pain but the pain she experiences in her back is worse. She has some shortness of breath with the symptoms. They do not occur with exertion. They have been on and off for the past 2 days. She denies any lower extremity edema no weight gain. She denies history of diabetes. She does have a cough. No fever or chills. Patient has been diagnosed with influenza A. Blood pressure 94/58, heart rate 78, pulse ox 98% on room air. Blood pressure readings have been labile down to 76/47 and as high as 146/114. She is status post Nitro-Bid and 1 L of IV fluids. Patient is seen today in the emergency center waiting for bed on the observation unit. -EKG: Sinus rhythm with no acute ST-T wave changes. -Chest x-ray: Mild pulmonary edema -Laboratory studies: CBC within normal limits. Sodium 134, potassium 3.9, creatinine 1.02. Troponin negative x 2. proBNP 879. Influenza A detected. -Home cardiac medications: Coreg 3.125 mg daily, valsartan hydrochlorothiazide 160-25 mg daily, also on levothyroxine. -Echocardiogram performed 11/2013 revealed EF 65 to 70%, trace mitral regurgitation, mild tricuspid regurgitation and mild pulmonary hypertension. Stress echocardiogram performed in 2013 was a normal EF and normal study. 05/24 Patient is seen and examined on the observation unit. Patient states that she is feeling a lot better this morning. She denies having any chest pain and no pain in her jaw. Last night she did experience some pain in her back. She continues to have some wheezing this morning and 1 dose of IV Lasix will be ordered to see if this will help. Blood pressure 134/64, heart rate 77, pulse ox 92% on room air. Repeat blood work reveals normal CBC. Sodium 136, pota ssium 4, BUN 31 and creatinine 1.3. Triglycerides 127, cholesterol 160, LDL 94, HDL 40. Echocardiogram reveals EF 55 to 60%, mild LVH. Aortic sclerosis with no stenosis and mild insufficiency. Mitral annular calcification with mild MR. No pericardial effusion. 05/25 Patient is feeling improvement. No chest pain no pain in her jaw. Respiratory status is not back to baseline yet. Blood pressure 153/75, heart rate 73, pulse ox 90% on room air. No repeat blood work today. Physical examination: Gen: This is a 68-year-old female patient in no acute distress VS: reviewed HEENT: Head is atraumatic, normocephalic. Pupils equal, round. Sclerae is anicteric. NECK: Supple. No JVD. LUNGS: Bilateral expiratory wheeze. No intercostal retractions. HEART: Regular rate and rhythm. No murmur. ABDOMEN: Soft No tenderness. EXTREMITIES: No pedal edema. No calf tenderness. NEUROLOGICAL: Patient is awake, alert and oriented x3. Assessment: Influenza A Atypical chest pain, acute coronary syndrome ruled out Chest pain most likely muscular skeletal related to influenza A and coughing Hypertension, currently hypotensive Hypothyroidism Plan: Hold patient's blood pressure medications. Gradually resume as patient's blood pressure recovers. At the time of discharge, patient will follow-up with Dr. Anderson in 2 weeks Plan for outpatient stress test once her respiratory symptoms have resolved. Cardiology will sign off this case and follow on an as-needed basis. Please reconsult for any new concerns. Patient may follow-up in the office in one to 2 weeks. Nurse practitioner note has been reviewed, I agree with documented findings and plan of care. Patient was seen and examined. Objective - Vital Signs Vital signs: Vital Signs Temp 97.9 F 05/25/24 07:00 Pulse 73 05/25/24 07:00 Resp 16 05/25/24 08:17 BP 153/75 05/25/24 07:00 Pulse Ox 90 L 05/25/24 07:00 FiO2 Intake & Output 05/24/24 05/25/24 05/25/24 18:59 06:59 18:59 Intake Total 442 120 Balance 442 120 Intake: Oral 442 120 Other: Voiding Method Toilet Toilet Toilet # Voids 1 2 - Labs CBC & Chem 7: 05/24/24 10:19 05/24/24 10:19 Labs: Abnormal Lab Results - Last 24 Hours (Table) 05/24/24 Range/Units 10:19 Sodium 136 L (137-145) mmol/L BUN 31 H (7-17) mg/dL Creatinine 1.30 H (0.52-1.04) mg/dL Glucose 131 H (74-99) mg/dL
[2024-05-25] MEDS: carvediloL 3.125 MG TAB PO SCH (13:18)
--- NOTE | 2024-05-25 13:27 | P.DS ---
Providers Date of admission: 05/23/24 03:16 Expected date of discharge: 05/25/24 Attending physician: Ailyn Garzon Consults: 05/22/24 23:40 Consult Physician Urgent Consulting Provider: Andrews Carpenter Consult Reason/Comments: chest pain Do you want consulting provider notified?: Yes Primary care physician: Ailyn Garzon [facility] Course: Diagnosis on discharge: Episodes of chest pain and shortness of breath Positive influenza A Hypotension on presentation, related to acute hypovolemic shock, received 1 L of IV fluid bolus Underlying history of hypertension Underlying history of hyperlipidemia Underlying history of morbid obesity Hospital course: Kelly Coy, is a 68-year-old female who presented to [facility] emergency room with a chief complaint of worsening shortness of breath and chest pain She was evaluated in the emergency room vital examination on presentation revealed a temperature of 98.1 pulse 102 respiration 18 blood pressure 117/61 but soon declined to 76/47 pulse ox 94% on room air Laboratory data revealed a white blood count of 7.0 hemoglobin 14.4 platelet count 174 sodium 134 potassium 3.9 chloride 94 CO2 28 BUN 13 creatinine 1.02 influenza A PCR was positive troponin 0.012 BNP 879 Testing in the emergency room revealed chest x-ray done in the emergency room revealed mild pulmonary edema, EKG revealed sinus rhythm with left atrial enlargement Patient was admitted to medical floor for further evaluation and treatment On 05/24/2024 patient is alert and oriented x 3. Patient jose on Tamiflu. 2D echo has been ordered awaiting results. Cardiology services following. Patient feels improved. Patient denies chest pain or shortness of breath. Patient denies nausea vomiting or diarrhea. Patient denies any urinary burning or frequency. Current vital signs temp 98.6, heart rate 76, respiratory rate 16, blood pressure 113/57 with a pulse ox of 95% on room air On 05/25/2024 patient was seen and examined on the medical floor she is alert and oriented x 3 in no apparent distress, she is feeling better she is afebrile she denies any new episodes of chest pain she is still having cough and shortness of breath with activity otherwise she denies any complaints. Blood pressure is stable Coreg was resumed, at this time patient is stable she can be discharged to home, she was given a prescription for Tamiflu, she will continue to use Coreg, she will continue to hold valsartan at this time, she will be evaluated in our office in 3 to 4 days. Patient Condition at Discharge: Stable Plan - Discharge Summary New Discharge Prescriptions: New Oseltamivir [Tamiflu] 30 mg PO Q12HR 4 Days #8 cap Continue Diazepam [Valium] 5 mg PO BID PRN PRN Reason: Anxiety Levothyroxine Sodium [Synthroid] 112 mcg PO DAILY carvediloL [Coreg] 3.125 mg PO DAILY HYDROcodone/APAP 10-325MG [[place] 10-325] 1 tab PO TID Discontinued Valsartan/Hydrochlorothiazide [Valsartan-Hctz 160-25 mg Tab] 1 tab PO DAILY Discharge Medication List Diazepam [Valium] 5 mg PO BID PRN 08/12/13 [History] HYDROcodone/APAP 10-325MG [[place] 10-325] 1 tab PO TID 06/23/20 [History] carvediloL [Coreg] 3.125 mg PO DAILY 06/23/20 [History] Levothyroxine Sodium [Synthroid] 112 mcg PO DAILY 05/23/24 [History] Oseltamivir [Tamiflu] 30 mg PO Q12HR 4 Days #8 cap 05/25/24 [Rx] Follow up Appointment(s)/Referral(s): Ailyn Garzon MD [Primary Care Provider] - 1-2 days
== END 2024-05-25 15:23 | disposition home or self-care (01) ==
LOC: EC 20:28 → 6NMEDSUR 05-23 03:16
PROVIDERS: ADMIT Internal Medicine; ATTEND Internal Medicine
DX: J10.1 Influenza due to other identified influenza virus with other respiratory manifestations (principal); J01.90 Acute sinusitis, unspecified; R07.89 Other chest pain; I95.9 Hypotension, unspecified; J81.1 Chronic pulmonary edema; R57.1 Hypovolemic shock; I10 Essential (primary) hypertension; E78.5 Hyperlipidemia, unspecified; F41.9 Anxiety disorder, unspecified; E66.01 Morbid (severe) obesity due to excess calories; E03.9 Hypothyroidism, unspecified; J44.9 Chronic obstructive pulmonary disease, unspecified; F17.200 Nicotine dependence, unspecified, uncomplicated; Z88.1 Allergy status to other antibiotic agents; Z68.41 Body mass index [BMI] 40.0-44.9, adult; Z88.5 Allergy status to narcotic agent; Z88.8 Allergy status to other drugs, medicaments and biological substances; Z79.890 Hormone replacement therapy; Z79.899 Other long term (current) drug therapy
CPT/HCPCS: 96376; 96372 ×2; 96361; 96374; 99285; 36415; 93005; 93306; 83880; 80061; 80053 ×2; 83735; 84484; 85025 ×2; 85610; 85730; 87636; 71046; G0378 ×3; J1940 ×2; J1650 ×2; Q9957

== ENCOUNTER → 2024-10-09 | Outpatient (CLI) | payer MEDICARE ==
--- NOTE | 2024-10-09 13:45 | MM ---
Reason for Exam: Screening (asymptomatic). Last mammogram was performed 1 year(s) and 1 month(s) ago. Patient History: Menarche at age 18. First Full-Term at age 19. Postmenopausal. Risk Values: Liz 5 year model risk: 1.1%. NCI Lifetime model risk: 3.8%. Prior Study Comparison: 06/11/2021 Bilateral Screening Mammogram, [facility]. 06/14/2022 Bilateral MG 3D screening mammo w/cad, [facility]. 09/22/2023 Bilateral MG 3D screening mammo w/cad, [facility]. Tissue Density: The breasts are almost entirely fatty. Findings: Analyzed By CAD. There is no suspicious group of microcalcifications or new suspicious mass in either breast. Overall Assessment: Negative, BI-RAD 1 Management: Screening Mammogram of both breasts in 1 year. . Patient should continue monthly self-breast exams. A clinical breast exam by your physician is recommended on an annual basis. This exam should not preclude additional follow-up of suspicious palpable abnormalities. Note on Liz scores and lifetime risk: 1. A Liz score greater than 3% is considered moderate risk. If this is the case, consider specialist referral to assess eligibility for a risk reducing agent. 2. If overall lifetime risk for the development of breast cancer is 20% or higher, the patient may qualify for future screening with alternating mammogram and breast MRI. [facility], , 10/09/2024 1:42 PM. Electronically signed and approved by: Edi Santillan M.D.
== END | disposition home or self-care (01) ==
LOC: RADMAMWWP 13:04
PROVIDERS: ATTEND Internal Medicine
DX: Z12.31 Encounter for screening mammogram for malignant neoplasm of breast (principal); R92.313 Mammographic fatty tissue density, bilateral breasts; Z78.0 Asymptomatic menopausal state
CPT/HCPCS: 77063; 77067